=== PATIENT | male | born 1950 | race Hispanic/Latino ===

== ENCOUNTER 2017-09-01 15:33 | Emergency (ER) | payer OTHER, MEDICARE ==
[2017-09-01 16:23] LABS: INR 0.93 (0.85-1.15); PARTIAL THROMBOPLASTIN TIME 26.2 SEC (26.3-35.5); PROTHROMBIN TIME 9.8 SEC (9.6-11.6)
[2017-09-01 16:25] LABS: CREATININE 1.1 mg/dL (0.5-1.5); POTASSIUM 4.2 mmol/L (3.5-5.1)
[2017-09-01 16:37] LABS: BASOPHILS % (AUTO) 0.2 % (0.0-5.0); EOSINOPHILS % (AUTO) 2.1 % (0.0-8.0); LYMPHOCYTES % (AUTO) 13.9 % (21.0-51.0); MEAN CORPUSCULAR HEMOGLOBIN 30.6 pg (27.0-33.0); MEAN CORPUSCULAR HGB CONC 33.9 g/dL (32.0-36.0); MEAN CORPUSCULAR VOLUME 90.2 fL (79-99); NEUTROPHILS % (AUTO) 74.8 % (40.0-77.0); PLATELET COUNT (AUTO) 247 K/uL (130-400); RED BLOOD CELL COUNT(AUTO) 4.99 MIL/uL (4.50-6.20); RED CELL DISTRIBUTION WIDTH 13.9 % (11.0-15.5); WHITE BLOOD COUNT (AUTO) 6.3 K/uL (4.8-10.8)
[2017-09-01 16:39] LABS: BILIRUBIN,TOTAL 0.6 mg/dL (0.2-1.0); CREATINE KINASE MB 0.6 ng/mL (0.5-3.6); TOTAL PROTEIN, SERUM 7.5 g/dL (6.0-8.3)
[2017-09-01] MEDS ORDERED: ACETAMINOPHEN EXTRA STRENGTH 500 MG TABLET ONE (18:48)
[2017-09-01 19:51] LABS: APPEARANCE,URINE Clear (CLEAR); BILIRUBIN,URINE Negative (NEGATIVE); COLOR,URINE Yellow (YELLOW); GLUCOSE, URINE (UA) Negative (NEGATIVE); KETONES,URINE Negative (NEGATIVE); LEUKOCYTE ESTERASE ,URINE Trace (NEGATIVE); NITRATE,URINE Negative (NEGATIVE); OCCULT BLOOD,URINE Negative (NEGATIVE); PH,URINE 6.5 (5.0-8.0); PROTEIN,URINE Negative (NEGATIVE)
[2017-09-01 20:12] LABS: BACTERIA,URINE Rare /HPF (None Seen); MUCUS,URINE Rare LPF (None Seen); RBC,URINE None Seen /HPF (0-1)
== END 2017-09-01 20:30 | disposition home or self-care (01) ==
LOC: EDH 15:33
DX: R10.30 Lower abdominal pain, unspecified (principal); Z98.890 Other specified postprocedural states
CPT/HCPCS: 36415; 71045; 76770; 80053; 81001; 82550; 82553; 83690; 84484; 85025; 85610; 85730; 93005

== ENCOUNTER 2019-09-14 05:52 | Inpatient (IN) | payer OTHER, MEDICARE ==
[2019-09-14] MEDS ORDERED: ONDANSETRON HCL 4 MG/2 ML VIAL ONE (05:59)
[2019-09-14] MEDS ORDERED: METOCLOPRAMIDE 10 MG/2 ML VIAL ONE (06:18)
[2019-09-14 06:30] LABS: BASOPHILS % (AUTO) 0.1 % (0.0-5.0); LYMPHOCYTES % (AUTO) 6.3 % (21.0-51.0); MEAN CORPUSCULAR HEMOGLOBIN 31.1 pg (27.0-33.0); MEAN CORPUSCULAR HGB CONC 33.4 g/dL (32.0-36.0); MEAN CORPUSCULAR VOLUME 93.2 fL (79-99); PLATELET COUNT (AUTO) 218 K/uL (130-400); RED BLOOD CELL COUNT(AUTO) 4.72 MIL/uL (4.50-6.20); RED CELL DISTRIBUTION WIDTH 12.7 % (11.0-15.5); WHITE BLOOD COUNT (AUTO) 8.9 K/uL (4.8-10.8)
[2019-09-14 06:50] LABS: BILIRUBIN,TOTAL 0.6 mg/dL (0.2-1.0); TOTAL PROTEIN, SERUM 7.2 g/dL (6.0-8.3)
[2019-09-14 06:53] LABS: INR 0.93 (0.85-1.15); PARTIAL THROMBOPLASTIN TIME 21.9 SEC (26.3-35.5); PROTHROMBIN TIME 10.1 SEC (9.6-11.6)
[2019-09-14] MEDS ORDERED: IOHEXOL-350 75 ML VIAL IV ONE (07:17)
[2019-09-14 07:19] LABS: APPEARANCE,URINE Clear (CLEAR); BILIRUBIN,URINE Negative (NEGATIVE); COLOR,URINE Yellow (YELLOW); GLUCOSE, URINE (UA) Negative (NEGATIVE); KETONES,URINE Negative (NEGATIVE); LEUKOCYTE ESTERASE ,URINE Negative (NEGATIVE); NITRATE,URINE Negative (NEGATIVE); OCCULT BLOOD,URINE Negative (NEGATIVE); PROTEIN,URINE Negative (NEGATIVE)
[2019-09-14] MEDS ORDERED: LIDOCAINE HCL 2% JELLY 5 ML ONE (08:24)
[2019-09-14] MEDS ORDERED: MORPHINE SULFATE 2 MG/ML 1ML SYG ONE (08:24)
[2019-09-14] MEDS ORDERED: ONDANSETRON HCL 4 MG/2 ML VIAL IVP PRN (08:30)
[2019-09-14] MEDS ORDERED: LABETALOL 20 MG/4 ML DISP.SYRIN IV PRN (08:30)
[2019-09-14] MEDS: LACTATED RINGERS 1000ML 1,000 ML IV SCH ×3 (08:30→20:01)
[2019-09-14] MEDS ORDERED: HYDRALAZINE HCL 20 MG/ML VIAL IV PRN (08:30)
[2019-09-14] MEDS ORDERED: HYDROMORPHONE HCL 0.5 MG/0.5 ML ML IVP PRN (08:30)
[2019-09-14] MEDS: FAMOTIDINE/PF 20 MG/2 ML VIAL IV SCH ×2 (09:00→19:54)
[2019-09-14] MEDS ORDERED: PANTOPRAZOLE 40 MG/VIAL IVP SCH (09:00)
[2019-09-14] MEDS: METOCLOPRAMIDE 10 MG/2 ML VIAL IVP SCH ×2 (09:00→19:54)
[2019-09-14 12:11] VITALS: BP 151/87
--- NOTE | 2019-09-14 13:00 | NUR ---
informed raf dale of consult ..
[2019-09-14] MEDS ORDERED: IBUP-2070 PO (16:44)
[2019-09-14] MEDS ORDERED: METH4TAB15 PO (16:44)
[2019-09-14 17:40] VITALS: BP 142/92
[2019-09-14] MEDS: POLYETHYLENE GLYCOL 3350 17 GM POWD.PACK NG SCH (17:40)
[2019-09-14] MEDS: DOCUSATE SODIUM 100 MG CAP PO SCH (17:40)
--- NOTE | 2019-09-14 18:36 | NUR ---
FLEETS ENEMA X 1
[2019-09-14 19:40] VITALS: BP 143/86
[2019-09-14 23:39] VITALS: BP 136/88
[2019-09-15 03:39] VITALS: BP 135/77
[2019-09-15 04:39] LABS: BASOPHILS % (AUTO) 0.2 % (0.0-5.0); EOSINOPHILS % (AUTO) 0.7 % (0.0-8.0); HEMATOCRIT 42.3 % (42-54); LYMPHOCYTES % (AUTO) 17.1 % (21.0-51.0); MEAN CORPUSCULAR HEMOGLOBIN 32.1 pg (27.0-33.0); MEAN CORPUSCULAR HGB CONC 33.6 g/dL (32.0-36.0); MEAN CORPUSCULAR VOLUME 95.7 fL (79-99); MONOCYTES % (AUTO) 8.6 % (3.0-13.0); NEUTROPHILS % (AUTO) 73.2 % (40.0-77.0); PLATELET COUNT (AUTO) 200 K/uL (130-400); RED BLOOD CELL COUNT(AUTO) 4.42 MIL/uL (4.50-6.20); RED CELL DISTRIBUTION WIDTH 12.9 % (11.0-15.5); WHITE BLOOD COUNT (AUTO) 5.5 K/uL (4.8-10.8)
[2019-09-15 04:52] LABS: PHOSPHORUS 2.5 mg/dL (2.5-4.9); POTASSIUM 3.8 mmol/L (3.5-5.1)
[2019-09-15 08:37] VITALS: BP 149/95
[2019-09-15] MEDS ORDERED: DOCUSATE SODIUM 100 MG CAP PO SCH (09:00)
[2019-09-15] MEDS ORDERED: POLYETHYLENE GLYCOL 3350 17 GM POWD.PACK NG SCH (09:00)
[2019-09-15] MEDS: METOCLOPRAMIDE 10 MG/2 ML VIAL IVP SCH ×2 (09:53→20:31)
[2019-09-15] MEDS: DOCUSATE SODIUM 100 MG CAP PO SCH (09:54)
[2019-09-15] MEDS: POLYETHYLENE GLYCOL 3350 17 GM POWD.PACK NG SCH (09:54)
[2019-09-15] MEDS: FAMOTIDINE/PF 20 MG/2 ML VIAL IV SCH ×2 (09:54→20:31)
--- NOTE | 2019-09-15 11:28 | NUR ---
chart reviewed,,acf uploaded, plan of care discussed w norbert, order recd Addendum: 09/15/19 at 1129 by VALENTINA BRUNER RN CM Amended: Links added.
[2019-09-15 12:28] VITALS: BP 156/96
--- NOTE | 2019-09-15 13:46 | NUR ---
THERESA PLAN VISITED WITH PATIENT. PATIENT SLEEPING. SHELDON WILL CONTINUE TO FOLLOW. Addendum: 09/15/19 at 1347 by TAHIR SUN RN CM Amended: Links added.
[2019-09-15 17:02] VITALS: BP 146/92
[2019-09-15 20:26] VITALS: BP 155/95
--- NOTE | 2019-09-15 21:38 | NUR ---
patient wants his IV on the left antecubital to be removed because he says "it hurts and it is not being used." After speaking with him about the reasons to have that IV catheter, he still wants it removed. IV catheter removed. tip of the catheter intact.
[2019-09-15 23:48] VITALS: BP 132/81
[2019-09-16] MEDS: LACTATED RINGERS 1000ML 1,000 ML IV SCH (00:30)
[2019-09-16 03:05] VITALS: BP 127/82
[2019-09-16 04:24] LABS: MEAN CORPUSCULAR HEMOGLOBIN 31.2 pg (27.0-33.0); MEAN CORPUSCULAR HGB CONC 33.5 g/dL (32.0-36.0); MEAN CORPUSCULAR VOLUME 93.3 fL (79-99); RED BLOOD CELL COUNT(AUTO) 4.61 MIL/uL (4.50-6.20); RED CELL DISTRIBUTION WIDTH 12.6 % (11.0-15.5); WHITE BLOOD COUNT (AUTO) 5.2 K/uL (4.8-10.8)
[2019-09-16 04:37] LABS: CREATININE 0.9 mg/dL (0.5-1.5); POTASSIUM 3.8 mmol/L (3.5-5.1)
[2019-09-16 07:56] VITALS: BP 135/86
[2019-09-16] MEDS: FAMOTIDINE/PF 20 MG/2 ML VIAL IV SCH (08:38)
[2019-09-16] MEDS: DOCUSATE SODIUM 100 MG CAP PO SCH (08:39)
[2019-09-16] MEDS: METOCLOPRAMIDE 10 MG/2 ML VIAL IVP SCH (08:39)
[2019-09-16] MEDS ORDERED: DOCU-275 PO (11:32)
--- NOTE | 2019-09-16 11:32 | NUR ---
DC PLAN VISITED WITH PATIENT. PATIENT LIVES WITH SPOUSE. INDEPENDENT ABLE TO PERFORM ADL'S. PATIENT HAS NO DME'S. PROVIDER 4 HOURS A DAY. FEELS SAFE TO RETURN HOME. Addendum: 09/16/19 at 1133 by TAHIR SUN RN CM Amended: Links added.
[2019-09-16 11:40] VITALS: BP 130/58
== END 2019-09-16 15:45 | disposition home or self-care (01) | DRG 390 ==
LOC: EDH 05:52 → OBSVTOIN 08:17 → EDHIP 08:17 → 3AH 09:45
PROVIDERS: ADMIT Internal Medicine; ATTEND Internal Medicine
PROC: 0D9670Z Drainage of Stomach with Drainage Device, Via Natural or Artificial Opening (ICD-10-PCS; principal; 2019-09-14)
DX: K56.600 Partial intestinal obstruction, unspecified as to cause (principal); K57.90 Diverticulosis of intestine, part unspecified, without perforation or abscess without bleeding; M19.90 Unspecified osteoarthritis, unspecified site; Z85.46 Personal history of malignant neoplasm of prostate
CPT/HCPCS: 36415; 71045; 74177; 80048; 80053; 81003; 83605; 83690; 83735; 84100; 84484; 85025; 85027; 85610; 85730; 87040; 93005; C9113; G0378; J1170; J2405; J2765; J3490; J7120; Q9967

== ENCOUNTER 2020-11-11 12:47 | Emergency (ER) | payer OTHER, MEDICARE ==
[~2020-11-11] VITALS: Ht 175.3 cm; Wt 74.8 kg
[~2020-11-11 12:47] MED LIST: DOCU-275 PO; IBUP-2070 PO
[2020-11-11] MEDS ORDERED: CEPHALEXIN 500 MG CAPSULE PO SCH (13:00)
[2020-11-11] MEDS ORDERED: KETOROLAC 60 MG VIAL (30MG/ML) IM SCH (13:00)
[2020-11-11] MEDS ORDERED: ACETAMINOPHEN 500 MG TABLET PO SCH (13:15)
[2020-11-11] MEDS ORDERED: NAPR-1180 PO (13:55)
[2020-11-11] MEDS ORDERED: CEPH500B PO (13:55)
[2020-11-11] MEDS ORDERED: TRAM1TAB PO (13:55)
== END 2020-11-11 14:47 | disposition home or self-care (01) ==
LOC: EDH 13:06
DX: M70.52 Other bursitis of knee, left knee (principal); L03.116 Cellulitis of left lower limb; Y93.H2 Activity, gardening and landscaping; Z79.899 Other long term (current) drug therapy
CPT/HCPCS: 73562; 96372; 99283; J1885

== ENCOUNTER 2021-04-27 15:40 | Emergency (ER) | payer OTHER, MEDICARE ==
[~2021-04-27] VITALS: Ht 175.3 cm; Wt 74.8 kg
[~2021-04-27 15:40] MED LIST changes: +CEPH500B PO; +DOCU-270 PO; -DOCU-275 PO; -IBUP-2070 PO; +NAPR-1180 PO; +OMEP40CA21 PO; +TAMS-1 PO; +TRAM1TAB PO
[2021-04-27 16:02] LABS: APPEARANCE,URINE Cloudy (CLEAR); BILIRUBIN,URINE Negative (NEGATIVE); COLOR,URINE Dark Yellow (YELLOW); GLUCOSE, URINE (UA) Negative (NEGATIVE); KETONES,URINE 40 mg/dL (NEGATIVE); LEUKOCYTE ESTERASE ,URINE Small (NEGATIVE); NITRATE,URINE Negative (NEGATIVE); OCCULT BLOOD,URINE Negative (NEGATIVE); PROTEIN,URINE POS 2+ mg/dL (NEGATIVE)
[2021-04-27 16:10] LABS: HEMATOCRIT 43.9 % (42-54); LYMPHOCYTES % (AUTO) 5.7 % (21.0-51.0); MEAN CORPUSCULAR HEMOGLOBIN 31.3 pg (27.0-33.0); MEAN CORPUSCULAR HGB CONC 34.6 g/dL (32.0-36.0); MEAN CORPUSCULAR VOLUME 90.3 fL (79-99); MONOCYTES % (AUTO) 2.4 % (3.0-13.0); NEUTROPHILS % (AUTO) 91.7 % (40.0-77.0); PLATELET COUNT (AUTO) 245 K/uL (130-400); RED BLOOD CELL COUNT(AUTO) 4.86 MIL/uL (4.50-6.20); RED CELL DISTRIBUTION WIDTH 12.7 % (11.0-15.5)
[2021-04-27 16:11] LABS: BACTERIA,URINE Many /HPF (None Seen); MUCUS,URINE Few LPF (None Seen); SQUAMOUS EPITHELIAL CELL,UR 0-2 /HPF (0-2); WBC,URINE 26-50 /HPF (0-1)
[2021-04-27 16:20] LABS: POTASSIUM 3.9 mmol/L (3.5-5.1)
[2021-04-27 16:24] LABS: ALBUMIN 4.2 g/dL (3.5-5.0); BILIRUBIN,TOTAL 0.9 mg/dL (0.2-1.0); TOTAL PROTEIN, SERUM 8.1 g/dL (6.0-8.3)
[2021-04-27] MEDS ORDERED: PANTOPRAZOLE 40 MG/VIAL IVP ONE (16:30)
[2021-04-27] MEDS ORDERED: 0.9%NACL 1000ML 1,000 ML IV ONE (16:30)
[2021-04-27] MEDS ORDERED: MORPHINE 4 MG SYG IV ONE (16:30)
[2021-04-27] MEDS ORDERED: DICYCLOMINE HCL 10 MG/5 ML ML PO ONE (17:00)
[2021-04-27] MEDS ORDERED: LIDOCAINE HCL 2% VISCOUS 15 ML UDCUP PO ONE (17:00)
[2021-04-27] MEDS ORDERED: MAG/ALUM/SIMETH 30 ML UDCUP PO ONE (17:00)
[2021-04-27 18:32] VITALS: BP 146/85
[2021-04-27] MEDS ORDERED: SUCR1TAB PO (18:35)
== END 2021-04-27 18:52 | disposition home or self-care (01) ==
LOC: EDH 15:40
DX: K29.00 Acute gastritis without bleeding (principal); Z79.1 Long term (current) use of non-steroidal anti-inflammatories (NSAID); Z79.899 Other long term (current) drug therapy
CPT/HCPCS: 36415; 74176; 80053; 81001; 83690; 84484; 85025; 87077; 87088; 87186; 93005; 96361; 96374; 96375; 99285; C9113; J2270; J7030

== ENCOUNTER 2022-02-16 00:33 | Emergency (ER) | payer OTHER, MEDICARE ==
[~2022-02-16] VITALS: Ht 175.3 cm; Wt 73.9 kg
[~2022-02-16 00:33] MED LIST changes: +SUCR1TAB PO; -TRAM1TAB PO; +TRAM1TAB2 PO
[2022-02-16 01:03] LABS: BASOPHILS % (AUTO) 0.2 % (0.0-5.0); HEMATOCRIT 46.3 % (42-54); LYMPHOCYTES % (AUTO) 5.6 % (21.0-51.0); MEAN CORPUSCULAR HEMOGLOBIN 31.6 pg (27.0-33.0); MEAN CORPUSCULAR HGB CONC 33.9 g/dL (32.0-36.0); MEAN CORPUSCULAR VOLUME 93.2 fL (79-99); MONOCYTES % (AUTO) 5.2 % (3.0-13.0); NEUTROPHILS % (AUTO) 88.6 % (40.0-77.0); PLATELET COUNT (AUTO) 228 K/uL (130-400); RED BLOOD CELL COUNT(AUTO) 4.97 MIL/uL (4.50-6.20); RED CELL DISTRIBUTION WIDTH 12.6 % (11.0-15.5); WHITE BLOOD COUNT (AUTO) 10.9 K/uL (4.8-10.8)
[2022-02-16 01:10] LABS: APPEARANCE,URINE CLOUDY (CLEAR); BILIRUBIN,URINE NEGATIVE (NEGATIVE); COLOR,URINE YELLOW (YELLOW); GLUCOSE, URINE (UA) NEGATIVE (NEGATIVE); KETONES,URINE 20 mg/dL (NEGATIVE); LEUKOCYTE ESTERASE ,URINE 500 Leu/uL (NEGATIVE); NITRATE,URINE NEGATIVE (NEGATIVE); OCCULT BLOOD,URINE NEGATIVE (NEGATIVE); PH,URINE 6.5 (5.0-8.0); PROTEIN,URINE 30 mg/dL (NEGATIVE)
[2022-02-16 01:15] LABS: POTASSIUM 4.3 mmol/L (3.5-5.1)
[2022-02-16 01:20] LABS: TOTAL PROTEIN, SERUM 7.7 g/dL (6.0-8.3)
[2022-02-16 01:24] LABS: BACTERIA,URINE RARE /HPF (None Seen); MUCUS,URINE MANY LPF (None Seen); SQUAMOUS EPITHELIAL CELL,UR RARE /HPF (0-2); WBC,URINE TNTC /HPF (0-1)
[2022-02-16] MEDS ORDERED: CEFTRIAXONE 1G VIAL IM ONE (02:00)
[2022-02-16] MEDS ORDERED: CEPH500B PO (02:10)
[2022-02-16] MEDS ORDERED: PHEN-846 PO (02:10)
[2022-02-16 02:30] VITALS: BP 173/95
[2022-02-16] MEDS ORDERED: PHENAZOPYRIDINE HCL 200 MG TABLET PO ONE (02:30)
== END 2022-02-16 02:57 | disposition home or self-care (01) ==
LOC: EDH 00:33
DX: N39.0 Urinary tract infection, site not specified (principal); Z98.890 Other specified postprocedural states; Z79.899 Other long term (current) drug therapy
CPT/HCPCS: 99283; 82150; 80053; 83690; 85025; 87077; 87088; 87186; 81001; 36415; 96372; J0696

== ENCOUNTER → 2022-03-03 | Outpatient (CLI) | payer OTHER, MEDICARE ==
[~2022-03-03] MED LIST changes: +PHEN-846 PO
== END | disposition home or self-care (01) ==
LOC: RAH 11:39
PROVIDERS: ATTEND Family Medicine
DX: M25.512 Pain in left shoulder (principal); Z91.81 History of falling
CPT/HCPCS: 73030

== ENCOUNTER → 2022-08-22 | Outpatient (CLI) | payer OTHER, MEDICARE ==
[~2022-08-22] MED LIST changes: +AMOX1TAB15 PO; +CEPH500C2 PO; +IBUP-2070 PO; +MUPI22OI2 TP; +REGADENOSON 0.4 MG/5 ML PF SYG IVP ONE
== END | disposition home or self-care (01) ==
LOC: SHCH 07:35
PROVIDERS: ATTEND Internal Medicine Cardiovascular Disease
DX: R94.31 Abnormal electrocardiogram [ECG] [EKG] (principal); R07.9 Chest pain, unspecified
CPT/HCPCS: 78452; 93017; J2785; A9500 ×2; 96374

== ENCOUNTER → 2022-08-27 | Outpatient (CLI) | payer OTHER, MEDICARE ==
[~2022-08-27] MED LIST changes: -AMOX1TAB15 PO; -CEPH500C2 PO; -IBUP-2070 PO; -MUPI22OI2 TP; -REGADENOSON 0.4 MG/5 ML PF SYG IVP ONE
== END | disposition home or self-care (01) ==
LOC: SHCH 10:00
PROVIDERS: ATTEND Internal Medicine Cardiovascular Disease
DX: I51.7 Cardiomegaly (principal); R94.31 Abnormal electrocardiogram [ECG] [EKG]; R07.9 Chest pain, unspecified; I51.89 Other ill-defined heart diseases
CPT/HCPCS: 93306

== ENCOUNTER 2022-09-09 17:29 | Emergency (ER) | payer OTHER, MEDICARE ==
[~2022-09-09] VITALS: Ht 175.3 cm; Wt 67.6 kg
[2022-09-09] MEDS ORDERED: LIDOCAINE HCL 1% 20 ML VIAL INJ SCH (18:30)
[2022-09-09] MEDS ORDERED: TETANUS/DIPHTHERIA TOXOID [ADULT] 0.5 ML VIAL IM ONE (19:00)
[2022-09-09] MEDS ORDERED: MUPI22OI2 TP (20:29)
[2022-09-09] MEDS ORDERED: IBUP-2070 PO (20:29)
[2022-09-09] MEDS ORDERED: CEPH500C2 PO (20:29)
[2022-09-09 20:55] VITALS: BP 128/74
[2022-09-09] MEDS ORDERED: IBUPROFEN 600 MG TABLET PO ONE (21:30)
== END 2022-09-09 21:10 | disposition home or self-care (01) ==
LOC: EDH 17:29
DX: S61.012A Laceration without foreign body of left thumb without damage to nail, initial encounter (principal); S61.412A Laceration without foreign body of left hand, initial encounter; K21.9 Gastro-esophageal reflux disease without esophagitis; Z87.19 Personal history of other diseases of the digestive system; Z98.890 Other specified postprocedural states; Z90.79 Acquired absence of other genital organ(s); W25.XXXA Contact with sharp glass, initial encounter; W01.0XXA Fall on same level from slipping, tripping and stumbling without subsequent striking against object, initial encounter; Y92.89 Other specified places as the place of occurrence of the external cause; Y99.8 Other external cause status
CPT/HCPCS: 12004; 73130; 90471; 90714; 96372

== ENCOUNTER 2022-10-06 09:56 | Emergency (ER) | payer OTHER, MEDICARE ==
[~2022-10-06] VITALS: Ht 175.3 cm; Wt 67.6 kg
[~2022-10-06 09:56] MED LIST changes: +CEPH500C2 PO; +IBUP-2070 PO; +MUPI22OI2 TP
[2022-10-06 09:57] VITALS: BP 151/96
[2022-10-06 10:31] LABS: APPEARANCE,URINE CLOUDY (CLEAR); BILIRUBIN,URINE NEGATIVE (NEGATIVE); COLOR,URINE YELLOW (YELLOW); GLUCOSE, URINE (UA) NEGATIVE (NEGATIVE); KETONES,URINE 10 mg/dL (NEGATIVE); LEUKOCYTE ESTERASE ,URINE 250 Leu/uL (NEGATIVE); NITRATE,URINE NEGATIVE (NEGATIVE); OCCULT BLOOD,URINE NEGATIVE (NEGATIVE); PROTEIN,URINE 30 mg/dL (NEGATIVE)
[2022-10-06 10:36] LABS: BACTERIA,URINE MANY /HPF (None Seen); MUCUS,URINE MANY LPF (None Seen); SQUAMOUS EPITHELIAL CELL,UR RARE /HPF (0-2); WBC,URINE 26-50 /HPF (0-1)
[2022-10-06 11:11] LABS: BASOPHILS % (AUTO) 0.1 % (0.0-5.0); HEMATOCRIT 46.2 % (42-54); LYMPHOCYTES % (AUTO) 13.5 % (21.0-51.0); MEAN CORPUSCULAR HEMOGLOBIN 30.5 pg (27.0-33.0); MEAN CORPUSCULAR HGB CONC 32.9 g/dL (32.0-36.0); MEAN CORPUSCULAR VOLUME 92.8 fL (79-99); MONOCYTES % (AUTO) 6.7 % (3.0-13.0); NEUTROPHILS % (AUTO) 79.3 % (40.0-77.0); PLATELET COUNT (AUTO) 292 K/uL (130-400); RED BLOOD CELL COUNT(AUTO) 4.98 MIL/uL (4.50-6.20); RED CELL DISTRIBUTION WIDTH 13.4 % (11.0-15.5); WHITE BLOOD COUNT (AUTO) 7.3 K/uL (4.8-10.8)
[2022-10-06 11:14] LABS: CARBON DIOXIDE 30 mmol/L (21-32); CHLORIDE 103 mmol/L (101-111); CREATININE 0.9 mg/dL (0.5-1.5); GLOMERULAR FILTR. RATE CALC 90 mL/min (>90); GLUCOSE,RANDOM 133 mg/dL (70-105); POTASSIUM 4.5 mmol/L (3.5-5.1); SODIUM SERUM 140 mmol/L (136-145); UREA NITROGEN, BLOOD 18 mg/dL (7-18)
[2022-10-06 11:19] LABS: ALANINE AMINOTRANSFERASE 20 U/L (12-78); ALBUMIN 4.5 g/dL (3.5-5.0); ASPARTATE AMINOTRANSFERASE 17 U/L (10-37); TOTAL PROTEIN, SERUM 7.5 g/dL (6.0-8.3)
[2022-10-06 11:20] LABS: LIPASE < 50 U/L (114-286)
[2022-10-06] MEDS ORDERED: IOHEXOL 350 MG/ML 100ML INFUS..BTL IV ONE (12:10)
[2022-10-06] MEDS: CEFTRIAXONE 1G VIAL IVPB ONE (12:48)
[2022-10-06] MEDS: 0.9%NACL 1000ML 1,000 ML IV ONE (12:48)
[2022-10-06] MEDS ORDERED: AMOX1TAB15 PO (14:21)
== END 2022-10-06 14:36 | disposition home or self-care (01) ==
LOC: EDH 09:56
DX: N39.0 Urinary tract infection, site not specified (principal); J02.0 Streptococcal pharyngitis; K21.9 Gastro-esophageal reflux disease without esophagitis; Z90.79 Acquired absence of other genital organ(s); Z20.822 Contact with and (suspected) exposure to COVID-19
CPT/HCPCS: 99285; 74177; 96365; 71045; 87635; 84484; 80053; 83690; 85025; 87077; 87088; 87186; 87880; 87804 ×2; 83605; 81001; 36415; 93005; C9803; J7030; J0696; Q9967

== ENCOUNTER 2022-10-29 00:24 | Observation (INO) | payer OTHER, MEDICARE ==
[~2022-10-29] VITALS: Ht 175.3 cm; Wt 64.8 kg
[~2022-10-29 00:24] MED LIST changes: +AMOX1TAB15 PO
[2022-10-29 01:24] LABS: BASOPHILS % (AUTO) 0.1 % (0.0-5.0); EOSINOPHILS % (AUTO) 0.2 % (0.0-8.0); HEMATOCRIT 45.2 % (42-54); MEAN CORPUSCULAR HEMOGLOBIN 31.1 pg (27.0-33.0); MEAN CORPUSCULAR HGB CONC 33.6 g/dL (32.0-36.0); MEAN CORPUSCULAR VOLUME 92.6 fL (79-99); MONOCYTES % (AUTO) 6.4 % (3.0-13.0); NEUTROPHILS % (AUTO) 89.2 % (40.0-77.0); PLATELET COUNT (AUTO) 192 K/uL (130-400); RED BLOOD CELL COUNT(AUTO) 4.88 MIL/uL (4.50-6.20); RED CELL DISTRIBUTION WIDTH 13.1 % (11.0-15.5); WHITE BLOOD COUNT (AUTO) 8.8 K/uL (4.8-10.8)
[2022-10-29] MEDS ORDERED: MORPHINE 4 MG SYG IVP ONE (01:30)
[2022-10-29] MEDS ORDERED: METOCLOPRAMIDE 10 MG/2 ML VIAL IVP ONE (01:30)
[2022-10-29] MEDS ORDERED: FAMOTIDINE 20MG VIAL IV ONE (01:30)
[2022-10-29 01:34] LABS: CARBON DIOXIDE 26 mmol/L (21-32); CHLORIDE 103 mmol/L (101-111); CREATININE 0.8 mg/dL (0.5-1.5); GLOMERULAR FILTR. RATE CALC 93 mL/min (>90); GLUCOSE,RANDOM 172 mg/dL (70-105); SODIUM SERUM 139 mmol/L (136-145); UREA NITROGEN, BLOOD 17 mg/dL (7-18)
[2022-10-29 01:38] LABS: ALANINE AMINOTRANSFERASE 18 U/L (12-78); ALBUMIN 4.1 g/dL (3.5-5.0); ASPARTATE AMINOTRANSFERASE 18 U/L (10-37); TOTAL PROTEIN, SERUM 7.7 g/dL (6.0-8.3)
[2022-10-29] MEDS ORDERED: IOHEXOL 350 MG/ML 100ML INFUS..BTL IV ONE (01:44)
[2022-10-29 01:52] LABS: APPEARANCE,URINE CLEAR (CLEAR); BILIRUBIN,URINE NEGATIVE (NEGATIVE); COLOR,URINE YELLOW (YELLOW); GLUCOSE, URINE (UA) NEGATIVE (NEGATIVE); KETONES,URINE 40 mg/dL (NEGATIVE); LEUKOCYTE ESTERASE ,URINE NEGATIVE Leu/uL (NEGATIVE); NITRATE,URINE NEGATIVE (NEGATIVE); OCCULT BLOOD,URINE NEGATIVE (NEGATIVE); PH,URINE 6.5 (5.0-8.0); PROTEIN,URINE 50 mg/dL (NEGATIVE)
[2022-10-29 01:57] LABS: LIPASE < 50 U/L (114-286)
[2022-10-29 02:20] LABS: MUCUS,URINE RARE LPF (None Seen)
[2022-10-29] MEDS: INSULIN HUMULIN R 100 UNIT/ML 3ML SQ SCH ×3 (06:00→18:00)
[2022-10-29] MEDS ORDERED: TRAMADOL HCL 50 MG TABLET PO PRN (06:00)
[2022-10-29] MEDS ORDERED: ONDANSETRON 4MG INJ IVP PRN (06:00)
[2022-10-29] MEDS: LACTATED RINGERS 1000ML 1,000 ML IV SCH ×3 (07:09→21:33)
[2022-10-29] MEDS: DOCUSATE SODIUM 100 MG CAP PO SCH (08:24)
[2022-10-29] MEDS: PHENAZOPYRIDINE HCL 200 MG TABLET PO SCH ×3 (08:24→21:14)
[2022-10-29] MEDS: TAMSULOSIN HCL 0.4 MG CAP.ER.24H PO SCH (08:25)
[2022-10-29] MEDS ORDERED: SUCRALFATE 1 GM TABLET PO PRN (08:30)
[2022-10-29] MEDS ORDERED: PANTOPRAZOLE 40 MG/VIAL IVP SCH (09:00)
[2022-10-29] MEDS ORDERED: ENOXAPARIN SODIUM 30 MG/0.3 ML SQ SCH (09:00)
[2022-10-29] MEDS: METOCLOPRAMIDE 10 MG/2 ML VIAL IVP SCH (17:01)
[2022-10-29] MEDS: PANTOPRAZOLE 40 MG/VIAL IVP SCH (21:14)
[2022-10-29 23:23] VITALS: BP 134/81
[2022-10-30 03:57] VITALS: BP 123/76
[2022-10-30] MEDS: LACTATED RINGERS 1000ML 1,000 ML IV SCH ×3 (05:38→21:32)
[2022-10-30] MEDS: INSULIN HUMULIN R 100 UNIT/ML 3ML SQ SCH ×4 (05:41→17:04)
[2022-10-30] MEDS: METOCLOPRAMIDE 10 MG/2 ML VIAL IVP SCH ×2 (06:37→11:40)
[2022-10-30 06:48] LABS: HEMATOCRIT 42.8 % (42-54); MEAN CORPUSCULAR HEMOGLOBIN 30.9 pg (27.0-33.0); MEAN CORPUSCULAR HGB CONC 32.7 g/dL (32.0-36.0); MEAN CORPUSCULAR VOLUME 94.5 fL (79-99); RED BLOOD CELL COUNT(AUTO) 4.53 MIL/uL (4.50-6.20); WHITE BLOOD COUNT (AUTO) 4.1 K/uL (4.8-10.8)
[2022-10-30 06:56] LABS: CREATININE 0.9 mg/dL (0.5-1.5); MAGNESIUM 1.7 mg/dL (1.80-2.40); PHOSPHORUS 2.6 mg/dL (2.5-4.9); POTASSIUM 3.5 mmol/L (3.5-5.1)
[2022-10-30 08:00] VITALS: BP 142/89
[2022-10-30] MEDS: DOCUSATE SODIUM 100 MG CAP PO SCH (08:41)
[2022-10-30] MEDS: TAMSULOSIN HCL 0.4 MG CAP.ER.24H PO SCH (08:41)
[2022-10-30] MEDS: ENOXAPARIN SODIUM 30 MG/0.3 ML SQ SCH (08:41)
[2022-10-30] MEDS: PHENAZOPYRIDINE HCL 200 MG TABLET PO SCH ×3 (08:41→21:26)
[2022-10-30] MEDS: PANTOPRAZOLE 40 MG/VIAL IVP SCH ×2 (08:53→21:26)
[2022-10-30] MEDS ORDERED: PANTOPRAZOLE 40 MG TAB DR PO SCH (09:00)
[2022-10-30 11:51] VITALS: BP 133/82
[2022-10-30 11:59] LABS: HEMATOCRIT 41.1 % (42-54)
[2022-10-30 16:00] VITALS: BP 134/81
[2022-10-30] MEDS: MAGNESIUM 2GM PREMIX 50ML 50 ML IV PRN (17:24)
[2022-10-30 18:08] LABS: HEMATOCRIT 39.3 % (42-54)
[2022-10-30 19:46] VITALS: BP 132/75
[2022-10-30 23:47] VITALS: BP 128/84
[2022-10-31 04:02] VITALS: BP 126/78
[2022-10-31 05:36] LABS: BASOPHILS % (AUTO) 0.2 % (0.0-5.0); EOSINOPHILS % (AUTO) 6.6 % (0.0-8.0); HEMATOCRIT 37.3 % (42-54); LYMPHOCYTES % (AUTO) 17.7 % (21.0-51.0); MONOCYTES % (AUTO) 9.3 % (3.0-13.0); PLATELET COUNT (AUTO) 157 K/uL (130-400); RED BLOOD CELL COUNT(AUTO) 3.97 MIL/uL (4.50-6.20); RED CELL DISTRIBUTION WIDTH 12.8 % (11.0-15.5); WHITE BLOOD COUNT (AUTO) 4.1 K/uL (4.8-10.8)
[2022-10-31] MEDS: INSULIN HUMULIN R 100 UNIT/ML 3ML SQ SCH ×3 (05:47→11:42)
[2022-10-31] MEDS: LACTATED RINGERS 1000ML 1,000 ML IV SCH (05:48)
[2022-10-31 05:51] LABS: INR 1.03 (0.85-1.15); PROTHROMBIN TIME 11.2 SEC (9.6-11.6)
[2022-10-31 06:15] LABS: ALBUMIN 2.8 g/dL (3.5-5.0); CREATININE 0.8 mg/dL (0.5-1.5); MAGNESIUM 1.7 mg/dL (1.80-2.40); POTASSIUM 3.8 mmol/L (3.5-5.1); THYROID STIMULATING HORMONE 0.35 uIU/mL (0.36-3.74); TOTAL PROTEIN, SERUM 5.5 g/dL (6.0-8.3)
[2022-10-31] MEDS: MAGNESIUM 2GM PREMIX 50ML 50 ML IV PRN (06:47)
[2022-10-31 07:30] VITALS: BP 117/66
[2022-10-31] MEDS: TAMSULOSIN HCL 0.4 MG CAP.ER.24H PO SCH (08:55)
[2022-10-31] MEDS: DOCUSATE SODIUM 100 MG CAP PO SCH (08:55)
[2022-10-31] MEDS: PHENAZOPYRIDINE HCL 200 MG TABLET PO SCH (08:56)
[2022-10-31] MEDS: ENOXAPARIN SODIUM 30 MG/0.3 ML SQ SCH (08:56)
[2022-10-31] MEDS: PANTOPRAZOLE 40 MG/VIAL IVP SCH (09:00)
[2022-10-31] MEDS ORDERED: DIATR MEGLU/DIATRIZOATE SODIUM 30 ML BOTTLE ONE (09:48)
[2022-10-31 11:30] VITALS: BP 148/85
[2022-10-31 15:30] VITALS: BP 146/92
[2022-10-31] MEDS ORDERED: PANT40TA PO (15:55)
== END 2022-10-31 18:17 | disposition home or self-care (01) ==
LOC: EDH 00:24 → EDHIP 05:31 → 3DH 22:18
PROVIDERS: ADMIT Internal Medicine Critical Care Medicine; ATTEND Internal Medicine Critical Care Medicine
DX: K92.0 Hematemesis (principal); Z20.822 Contact with and (suspected) exposure to COVID-19; K56.600 Partial intestinal obstruction, unspecified as to cause; K59.09 Other constipation; I10 Essential (primary) hypertension; K21.9 Gastro-esophageal reflux disease without esophagitis; Z85.46 Personal history of malignant neoplasm of prostate; Z87.891 Personal history of nicotine dependence; Z79.899 Other long term (current) drug therapy
CPT/HCPCS: 96374; 96376 ×3; 96372 ×2; 96361 ×3; 96375 ×2; 99285; 84484; 80053 ×2; 83690; 85025 ×2; 85014 ×3; 85018 ×3; 87804 ×2; 82948 ×10; 81001; 36415 ×3; 87635 ×2; 74177; 93005; 83735 ×2; 84100; 80048; 85027; 84443; 85610; 74240; 84145; G0378 ×59; C9803; J7120; J3490; J1650 ×2; J2270; C9113 ×3; J2765 ×5; Q9967; J3475 ×2; Q9963

== ENCOUNTER 2023-06-05 16:33 | Emergency (ER) | payer MEDICARE ==
[~2023-06-05] VITALS: Ht 175.3 cm; Wt 70.3 kg
[~2023-06-05 16:33] MED LIST changes: -IBUP-2070 PO; -NAPR-1180 PO; -OMEP40CA21 PO; +PANT40TA PO
[2023-06-05 17:24] LABS: BASOPHILS # (AUTO) 0.02 K/uL (0.00-0.20); BASOPHILS % (AUTO) 0.3 % (0.0-5.0); EOSINOPHILS # (AUTO) 0.07 K/uL (0.00-0.70); EOSINOPHILS % (AUTO) 1.2 % (0.0-8.0); HEMATOCRIT 40.9 % (42-54); IMMATURE GRANULOCYTE ABSOLUTE 0.02 K/uL (0-1); LYMPHOCYTES # (AUTO) 0.9 K/uL (1.0-4.8); MEAN CORPUSCULAR HEMOGLOBIN 30.9 pg (27.0-33.0); MEAN CORPUSCULAR HGB CONC 33.3 g/dL (32.0-36.0); MONOCYTES # (AUTO) 0.9 K/uL (0.1-1.0); NEUTROPHILS # (AUTO) 3.9 K/uL (1.8-7.7); NEUTROPHILS % (AUTO) 67.2 % (40.0-77.0); PLATELET COUNT (AUTO) 208 K/uL (130-400); RED CELL DISTRIBUTION WIDTH 12.5 % (11.0-15.5); WHITE BLOOD COUNT (AUTO) 5.9 K/uL (4.8-10.8)
[2023-06-05 17:34] LABS: INR < 0.93 (0.85-1.15); PROTHROMBIN TIME 10.7 SEC (9.6-11.6)
[2023-06-05 17:43] LABS: ALBUMIN 3.6 g/dL (3.5-5.0); BILIRUBIN,TOTAL 0.7 mg/dL (0.2-1.0); TOTAL PROTEIN, SERUM 7.4 g/dL (6.0-8.3)
[2023-06-05 17:43] LABS: RAPID GROUP A STREP negative (NEGATIVE)
[2023-06-05 17:46] LABS: SARS-CoV-2, RNA, NAAT NEGATIVE SARS CoV-2 (NEGATIVE)
[2023-06-05 17:51] LABS: INFLUENZA TYPE A Negative For Type A (NEGATIVE); INFLUENZA TYPE B Negative For Type B (NEGATIVE)
[2023-06-05 18:15] LABS: B-TYPE NATRIURETIC PEPTIDE 14 pg/mL (0-100)
[2023-06-05 20:01] VITALS: BP 125/80; PULSE 77; RESP 18; O2SAT 98
== END 2023-06-05 20:06 | disposition home or self-care (01) ==
LOC: EDH 16:33
DX: M94.0 Chondrocostal junction syndrome [Tietze] (principal); K21.9 Gastro-esophageal reflux disease without esophagitis; Z20.822 Contact with and (suspected) exposure to COVID-19; Z79.899 Other long term (current) drug therapy; Z98.890 Other specified postprocedural states
CPT/HCPCS: 36415; 80053; 83880; 84484; 85025; 85610; 87635; 87804; 87880; 93005

== ENCOUNTER 2024-08-07 06:18 | Emergency (ER) | payer MEDICARE ==
[~2024-08-07] VITALS: Ht 175.3 cm; Wt 79.4 kg
--- NOTE | 2024-08-07 06:42 | EKG ---
[facility] Test Date: 2024-08-07 Test Time: 06:40:22 Pat Name: KEISHA STROUD Department: [facility] Room: Gender: M Identifier Horse: [id number] : 1950 Requested By: MORIS REBOLLEDO Order Number: [id number] Reading MD: Ray Ash Measurements Intervals [place] Rate: 62 P: 38 WA: 128 QRS: 48 QRSD: 108 T: 42 QT: 390 QTc: 396 Interpretive Statements Sinus rhythm Compared to ECG 06/05/2023 16:44:52 Intraventricular conduction delay no longer present Electronically Signed On 08-08-2024 12:42:05 CDT by Ray Ash Please click the below link to view image of tracing.
--- NOTE | 2024-08-07 06:48 | ERN ---
ED Note History of Present Illness Stated Complaint: NAUSEA AND VOMITING Chief Complaint: Nausea,Vomiting,Diarrhea Time Seen by MD: 06:49 Dictation: This is a 74-year-old male who presented to the emergency room via EMS with complaints of nausea vomitings and diarrhea Allergies: Coded Allergies: No Known Drug Allergies (Unverified Allergy, Unknown, 01/11/21) Home Meds Active Scripts Pantoprazole Sodium (Protonix) 40 Mg Tablet.dr, 40 MG PO DAILY, #30 TAB 0 Refills Prov:LAURY SMITH [employer]ER 10/31/22 Amoxicillin/Potassium Clav (Amox Tr-K Clv 500-125 mg Tab) 1 Each Tablet, 1 EACH PO Q12H for 7 Days, #14 TAB Prov:LOIDA NGO NP 10/06/22 Mupirocin (Mupirocin Ointment) 22 Gm Oint, 1 APPL TP BID for 5 Days, #30 G Prov:JULIETA RIOS 09/09/22 Cephalexin (Cephalexin) 500 Mg Capsule, 500 MG PO TID for 10 Days, #30 CAP Prov:JULIETA RIOS 09/09/22 Phenazopyridine HCl (Pyridium) 100 Mg Tab, 100 MG PO TID, #15 TAB Prov:EH COLBERT MD 02/16/22 Cephalexin Monohydrate (Keflex) 500 Mg Cap, 500 MG PO TID, #30 CAP Prov:EH COLBERT MD 02/16/22 Sucralfate (Carafate) 1 Gm Tablet, 1 GM PO QIDP PRN for Stomach Pain, #60 TAB 1 Refill Prov:DEINSE MTZ MD 04/27/21 Cephalexin Monohydrate (Keflex) 500 Mg Cap, 500 MG PO TID PRN for uti, #15 CAP Prov:DIAMANTE CARMONA MD 01/13/21 Tramadol HCl/Acetaminophen (Ultracet Tablet) 1 Each Tablet, 1 EACH PO QID, #30 TAB Prov:ROBERTH ZAVALA 11/11/20 Docusate Sodium (Dok) 100 Mg Capsule, 100 MG PO DAILY for 30 Days, #30 CAP Prov:BERE GRACE 09/16/19 Reported Medications Tamsulosin HCl (Flomax) 0.4 Mg Cap.er.24h, 0.4 MG PO DAILY, CAPSULE. 01/12/21 Past Medical History Past Medical History: Constipation, GERD Additional Past Medical Hx: GASTRITIS Surgical History: Other Surgical History Other: PROSTATECTOMY, HERNIA Family History: Negative Social History: Negative, Lives with family, Other RN Note Reviewed/Agreed w/PFSH: Yes Review of System Dictation Constitutional: Negative for fever,chills, and weight loss Eyes: Negative for injury, pain,redness, and discharge ENT: Negative for injury,pain or swelling Cardiovascular: Negative for chest pain, palpitations, and edema Respiratory: Negative for shortness of breath, cough, and wheezing, Abdomen/GI: Negative for abdominal pain, positive for nausea, vomiting, diarrhea, Back: Negative for injury and pain : Negative for injury, bleeding and discharge MS/Extremity: Negative for injury and deformity Skin: Negative for rash, and discoloration Neuro: Negative for headache, weakness, numbness, tingling, and seizure Psych: Negative for suicide ideation, homicidal ideation, and hallucinations Initial Vital Sign VS Vital Signs Date Time Temp Pulse Resp B/P (MAP) Pulse Ox O2 Delivery O2 Flow Rate FiO2 08/07/24 06:45 99.0 60 18 116/50 99 Room Air* 0 21 Physical Exam Dictation General: awake, alert, NAD Head/Face: Normocephalic, atraumatic Eyes: PERRL, EOMI, vision at baseline ENT: oral cavity clear, TMs clear, no signs of infection Neck: Trachea midline, supple, no nuchal rigidity Cardiovascular: RRR, normal S1/S2, No MRGs, no JVD Respiratory: CTAB, no respiratory distress, No rales or wheezes Abdomen: Soft, non-tender, non-distended, normal bowel sounds, no guarding or rebound. Skin: Warm, dry, normal turgor, no rash MS/Extremity: Pulses equal, no cyanosis, neurovascular intact, FROM Neuro: COAx4, GCS 15, strength 5/5, CN 2-12 intact, normal cerebellar exam, normal gait, Psych: Normal behavior, mood, and affect normal Extremities-trace edema without any palpable cords, Homans sign is negative Results (Laboratory/Radiology) Laboratory/Radiology Laboratory Tests Test 08/07/24 06:38 08/07/24 09:30 White Blood Count 6.0 K/uL (4.8-10.8) Red Blood Count 4.39 MIL/uL (4.50-6.20) L Hemoglobin 13.9 g/dL (14.0-18.0) L Hematocrit 41.5 % (42-54) L Mean Corpuscular Volume 94.5 fL (79-99) Mean Corpuscular Hemoglobin 31.7 pg (27.0-33.0) Mean Corpuscular Hemoglobin Concent 33.5 g/dL (32.0-36.0) Red Cell Distribution Width 13.0 % (11.0-15.5) Platelet Count 192 K/uL (130-400) Mean Platelet Volume 9.6 fL (7.5-10.5) Immature Granulocyte % (Auto) 0.5 % (0-1) Neutrophils (%) (Auto) 82.4 % (40.0-77.0) H Lymphocytes (%) (Auto) 9.5 % (21.0-51.0) L Monocytes (%) (Auto) 7.2 % (3.0-13.0) Eosinophils (%) (Auto) 0.2 % (0.0-8.0) Basophils (%) (Auto) 0.2 % (0.0-5.0) Neutrophils # (Auto) 4.9 K/uL (1.8-7.7) Lymphocytes # (Auto) 0.6 K/uL (1.0-4.8) L Monocytes # (Auto) 0.4 K/uL (0.1-1.0) Eosinophils # (Auto) 0.01 K/uL (0.00-0.70) Basophils # (Auto) 0.01 K/uL (0.00-0.20) Absolute Immature Granulocyte (auto 0.03 K/uL (0-1) Nucleated Red Blood Cells 0.0 % (0.0-0.19) White Cell Morphology Comment See comments Sodium Level 137 mmol/L (136-145) Potassium Level 4.0 mmol/L (3.5-5.1) Chloride Level 104 mmol/L (101-111) Carbon Dioxide Level 28 mmol/L (21-32) Blood Urea Nitrogen 24 mg/dL (7-18) H Creatinine 0.8 mg/dL (0.5-1.3) Glomerular Filtration Rate Calc 92 mL/min (>90) Random Glucose 118 mg/dL (70-105) H Total Calcium 9.2 mg/dL (8.5-10.1) Lipase 24 U/L (16-77) Urine Color LIGHT-YELLOW (YELLOW) Urine Appearance CLEAR (CLEAR) Urine pH 7.0 (5.0-8.0) Urine Specific [place] 1.025 (1.001-1.031) Urine Protein 10 mg/dL (NEGATIVE) H Urine Glucose (UA) NEGATIVE mg/dL (NEGATIVE) Urine Ketones NEGATIVE mg/dL (NEGATIVE) Urine Occult Blood NEGATIVE (NEGATIVE) Urine Nitrate NEGATIVE (NEGATIVE) Urine Bilirubin NEGATIVE mg/dL (NEGATIVE) Urine Urobilinogen 0.2 mg/dL (0.2-1.0) Urine Leukocyte Esterase NEGATIVE Surinder/uL Urine RBC 2-5 /HPF (0-1) H Urine WBC 2-5 /HPF (0-1) H Urine Bacteria None /HPF (None Seen) Labs Reviewed?: Yes EKG Comment: Twelve lead EKG done on 08/07/2024 at 6:40 a.m. showed a heart rate of 62, MS interval 128, QRS 108, QT/QTC 390/396 Impression normal sinus rhythm with no acute STT wave changes. Interpreted by ER MD Dr. Aguirre X-RAY Comment: [address] [id number] IMAGING REPORT Signed PATIENT: KEISHA CHAUDHRY MR#: [id number] : 1950 SEX: M AGE: 74 LOCATION: [facility] ORDER STATUS: REG ER REPORT#: [id number] SERVICE [id number] REASON: evaluate SBO ORDERING PHYSICIAN: MORIS AGUIRRE MD PROCEDURE: ABD 1VW - ABD 1VW ABD 1VW HISTORY: Small bowel obstruction COMPARISON: None FINDINGS: A frontal projection of the abdomen was obtained. A nonspecific bowel gas pattern is seen. Fecal material is seen in the colon. Degenerative changes of the thoracolumbar spine are noted. Round radiopaque density is seen in the right pelvic region may be related to a reservoir. IMPRESSION: 1. A nonspecific bowel gas pattern is seen. Fecal material is seen in the colon. DICTATED BY: RUTHANN MONTANEZ MD DATE: 08/07/24 07 ELECTRONICALLY SIGNED BY: RUTHANN MONTANEZ MD DATE: 08/07/24 [address] [address] [address] [place] [id number] IMAGING REPORT Signed PATIENT: KEISHA CHAUDHRY MR#: [id number] : 1950 SEX: M AGE: 74 LOCATION: ED ORDER 6 STATUS: REG ER REPORT#: [id number] SERVICE 5 REASON: nausea vomitings ORDERING PHYSICIAN: MORIS AGUIRRE MD PROCEDURE: CXR1VW - CHEST 1VW CHEST 1VW HISTORY: Nausea and vomiting COMPARISON: None FINDINGS: A frontal projection of the chest was obtained. No acute pulmonary infiltrates is seen. The heart is normal in size. Degenerative changes are seen. Prominent interstitial markings are seen. No evidence of aortic calcification is seen. IMPRESSION: 1. No acute pulmonary infiltrate is seen. DICTATED BY: RUTHANN MONTANEZ MD DATE: 08/07/24 08 ELECTRONICALLY SIGNED BY: RUTHANN MONTANEZ MD DATE: 08/07/[address] Scan Comment: [address] [id number] IMAGING REPORT Signed PATIENT: KEISHA CHAUDHRY MR#: [id number] : 1950 SEX: M AGE: 74 LOCATION: [facility] ORDER [id number] STATUS: REG ER REPORT#: [id number] SERVICE [id number] REASON: abd pain ORDERING PHYSICIAN: ANNETTE HOGUE MD PROCEDURE: ABD PEL WO - CT ABDOMEN/PELVIS W/O CONTRAST CT ABDOMEN/PELVIS W/O CONTRAST HISTORY: Abdominal pain COMPARISON: 10/29/2022 TECHNIQUE: Multiple sequential axial images of the abdomen and pelvis were obtained from the dome of the diaphragm through symphysis pubis. Patient was not given contrast through intravenous route. Oral contrast was not given. FINDINGS: No pleural effusion is seen bilaterally. There is no evidence of parenchymal disease or pulmonary nodule of the visualized lower lungs. Degenerative changes of the thoracolumbar spine are present. The heart is not enlarged. The liver, spleen, adrenal glands and pancreas are unremarkable. There is no evidence of hydronephrosis bilaterally. There are bilateral perinephric fat stranding may be related to pyelonephritis. Urinalysis correlation may be helpful. No evidence of renal stone is seen. Fecal material is seen in the colon. There are normal size retroperitoneal and mesenteric lymph nodes. No ascites is seen. Atherosclerotic changes are present. There is reservoir noted in the right anterior pelvis. Penile implant is seen. There is diverticulosis. There is sigmoid colon wall thickening with adjacent fat stranding may be related to early acute diverticulitis. No focal abscess is seen. Pelvic sidewalls are symmetric bilaterally. Bladder is well distended without wall thickening. IMPRESSION: 1. There is diverticulosis. There is sigmoid colon wall thickening with adjacent fat stranding may be related to early acute diverticulitis. No focal abscess is seen. CT was performed with one or more following dose reduction techniques: automated exposure control, adjustment of the mA and kv according to patient's size, or use of a iterative reconstruction technique. DICTATED BY: RUTHANN MONTANEZ MD DATE: 08/07/24 1024 ELECTRONICALLY SIGNED BY: RUTHANN MONTANEZ MD DATE: 08/07/24 1028 ED Course ED Course Orders Procedure Category Date Status Time Cbc With Differential LAB 08/07/24 Complete 06:26 Urinalysis Profile LAB 08/07/24 Complete 06:26 12 Lead Ekg Tracing- EKG 08/07/24 Complete Technical 06:26 0.9%Nacl 1000ml (Ns PHA 08/07/24 In Process 1000ml) 06:30 Ondansetron 4mg Inj PHA 08/07/24 Complete (Zofran 4mg Inj) 06:30 Pantoprazole 40mg Inj PHA 08/07/24 Complete (Protonix 40mg Inj 06:30 Chest 1vw RAD 08/07/24 Resulted 06:26 Lipase LAB 08/07/24 Complete 06:26 Basic Metabolic Panel LAB 08/07/24 Complete 06:26 Abd 1vw RAD 08/07/24 Resulted 06:47 Ct Abdomen/Pelvis W/O CT 08/07/24 Resulted Contrast 09:56 Current Medications Medications (Trade) Dose Ordered Sig/Yue Route PRN Reason Start Time Stop Time Status Last Admin Dose Admin Ondansetron HCl (zoFRAN 4MG INJ) 4 mg ONCE ONCE IVP 08/07/24 06:30 08/07/24 06:31 DC 08/07/24 06:52 Pantoprazole Sodium (PROTonix 40MG INJ) 40 mg ONCE ONCE IVP 08/07/24 06:30 08/07/24 06:32 DC 08/07/24 06:52 Sodium Chloride 1,000 ml @ 125 mls/hr ONCE ONCE IV 08/07/24 06:30 08/07/24 14:29 08/07/24 06:52 Vital Signs Date Time Temp Pulse Resp B/P (MAP) Pulse Ox O2 Delivery O2 Flow Rate FiO2 08/07/24 08:30 54 16 138/71 95 Room Air* 0 21 08/07/24 06:55 98.4 62 18 116/48 98 Room Air 0 08/07/24 06:45 99.0 60 18 116/50 99 Room Air* 0 21 We will perform diagnostic labs, advanced imaging and administer medications according to the patient's complaint. Once the results are available, will review and personally interpreted the labs to rule out any acute life- threatening emergency the trach require immediate intervention and treatment. I will then re-evaluate the patient after treatment and diagnostic exams have return to determine whether the patient requires any further testing, can safely be discharged home or need further admission to hospital for additional treatment and evaluation. Medical Decision Making MDM MDM: DIFFERENTIAL DIAGNOSIS: VENTRICULITIS, ABDOMINAL PAIN, CONSTIPATION, PATIENT IS A 74-YEAR-OLD MALE COMING IN TO BE EVALUATED FOR ABDOMINAL PAIN. PATIENT HAS A HISTORY OF SMALL-BOWEL OBSTRUCTIONS INITIAL X-RAY DID NOT DISCLOSE ACUTE FINDINGS CT OF THE ABDOMEN DISCLOSE DIVERTICULITIS. WHITE BLOOD CELL COUNT WITHIN NORMAL LIMITS. PATIENT WILL BE DISCHARGED IN STABLE CONDITION WITH ORAL ANTIBIOTICS I DID ADVISED HIM APPROPRIATE FOLLOW UP WITH PCP IN 1-2 DAYS. Problem List Problem List: (1) Nausea vomiting and diarrhea (2) Abdominal pain DX & DISP Disposition: Discharge Departure Impression: Primary Impression: Abdominal pain Additional Impressions: Nausea vomiting and diarrhea, Diverticulitis Condition: Stable Additional Instructions: FOLLOW-UP WITH PRIMARY CARE PROVIDER IN 1 TO 2 DAYS. TAKE MEDICATIONS DIRECTED HERE IN THE EMERGENCY ROOM. OKAY TO CONTINUE HOME MEDICATIONS UNLESS OTHERWISE DISCUSSED DURING YOUR VISIT IN THE EMERGENCY ROOM TODAY. RETURN TO YOUR NEAREST EMERGENCY ROOM IF SYMPTOMS WORSEN OR IF THERE IS NO IMPROVEMENT. CALL 911 IF YOU NEED IMMEDIATE ASSISTANCE. TAKE TYLENOL [id number] NEEDED AND IF NO CONTRAINDICATIONS ARE PRESENT. INCREASE ORAL HYDRATION. A WOUND CULTURE OR URINE CULTURE WAS ORDERED HERE IN THE EMERGENCY ROOM DEPARTMENT PLEASE FOLLOW-UP WITH PRIMARY CARE PROVIDER AND ADVISE THEM TO GET REPEAT PORTS FROM OUR FACILITY. IF YOU HAD ANY MELANI WRAP/SPLINTS THAT WERE APPLIED HERE, PLEASE DO NOT REMOVE THEM UNTIL YOU SEE YOUR PRIMARY CARE OR SPECIALTY. REFERRALS: Referrals: LANRE MONTESINOS MD (PCP) Time of Disposition: 10:39 MORIS AGUIRRE MD Aug 07, 2024 06:48 ANNETTE HOGUE MD Aug 07, 2024 09:56
[2024-08-07] MEDS: PANTOPrazole 40 MG/VIAL IVP ONE (06:52)
[2024-08-07] MEDS: 0.9%NACL 1000ML 1,000 ML IV ONE (06:52)
[2024-08-07] MEDS: ondanSETRON 4MG INJ IVP ONE (06:52)
[2024-08-07 07:04] LABS: BASOPHILS # (AUTO) 0.01 K/uL (0.00-0.20); BASOPHILS % (AUTO) 0.2 % (0.0-5.0); EOSINOPHILS # (AUTO) 0.01 K/uL (0.00-0.70); EOSINOPHILS % (AUTO) 0.2 % (0.0-8.0); HEMATOCRIT 41.5 % (42-54); IMMATURE GRANULOCYTE ABSOLUTE 0.03 K/uL (0-1); LYMPHOCYTES # (AUTO) 0.6 K/uL (1.0-4.8); LYMPHOCYTES % (AUTO) 9.5 % (21.0-51.0); MEAN CORPUSCULAR HEMOGLOBIN 31.7 pg (27.0-33.0); MEAN CORPUSCULAR HGB CONC 33.5 g/dL (32.0-36.0); MEAN CORPUSCULAR VOLUME 94.5 fL (79-99); MONOCYTES # (AUTO) 0.4 K/uL (0.1-1.0); MONOCYTES % (AUTO) 7.2 % (3.0-13.0); NEUTROPHILS # (AUTO) 4.9 K/uL (1.8-7.7); NEUTROPHILS % (AUTO) 82.4 % (40.0-77.0); PLATELET COUNT (AUTO) 192 K/uL (130-400); RED BLOOD CELL COUNT(AUTO) 4.39 MIL/uL (4.50-6.20)
--- NOTE | 2024-08-07 07:41 | HMCIMG ---
ABD 1VW HISTORY: Small bowel obstruction COMPARISON: None FINDINGS: A frontal projection of the abdomen was obtained. A nonspecific bowel gas pattern is seen. Fecal material is seen in the colon. Degenerative changes of the thoracolumbar spine are noted. Round radiopaque density is seen in the right pelvic region may be related to a reservoir. IMPRESSION: 1. A nonspecific bowel gas pattern is seen. Fecal material is seen in the colon.
[2024-08-07 07:44] LABS: CREATININE 0.8 mg/dL (0.5-1.3)
--- NOTE | 2024-08-07 08:05 | HMCIMG ---
CHEST 1VW HISTORY: Nausea and vomiting COMPARISON: None FINDINGS: A frontal projection of the chest was obtained. No acute pulmonary infiltrates is seen. The heart is normal in size. Degenerative changes are seen. Prominent interstitial markings are seen. No evidence of aortic calcification is seen. IMPRESSION: 1. No acute pulmonary infiltrate is seen.
[2024-08-07 09:41] LABS: APPEARANCE,URINE CLEAR (CLEAR); BILIRUBIN,URINE NEGATIVE (NEGATIVE); COLOR,URINE LIGHT-YELLOW (YELLOW); GLUCOSE, URINE (UA) NEGATIVE (NEGATIVE); KETONES,URINE NEGATIVE (NEGATIVE); LEUKOCYTE ESTERASE ,URINE NEGATIVE Leu/uL (NEGATIVE); NITRATE,URINE NEGATIVE (NEGATIVE); OCCULT BLOOD,URINE NEGATIVE (NEGATIVE); PROTEIN,URINE 10 mg/dL (NEGATIVE); UROBILINOGEN,URINE 0.2 mg/dL (0.2-1.0)
[2024-08-07 09:42] LABS: ADD UA MICROSCOPIC YES
[2024-08-07 09:44] LABS: MUCUS,URINE RARE LPF (None Seen)
--- NOTE | 2024-08-07 10:28 | HMCIMG ---
CT ABDOMEN/PELVIS W/O CONTRAST HISTORY: Abdominal pain COMPARISON: 10/29/2022 TECHNIQUE: Multiple sequential axial images of the abdomen and pelvis were obtained from the dome of the diaphragm through symphysis pubis. Patient was not given contrast through intravenous route. Oral contrast was not given. FINDINGS: No pleural effusion is seen bilaterally. There is no evidence of parenchymal disease or pulmonary nodule of the visualized lower lungs. Degenerative changes of the thoracolumbar spine are present. The heart is not enlarged. The liver, spleen, adrenal glands and pancreas are unremarkable. There is no evidence of hydronephrosis bilaterally. There are bilateral perinephric fat stranding may be related to pyelonephritis. Urinalysis correlation may be helpful. No evidence of renal stone is seen. Fecal material is seen in the colon. There are normal size retroperitoneal and mesenteric lymph nodes. No ascites is seen. Atherosclerotic changes are present. There is reservoir noted in the right anterior pelvis. Penile implant is seen. There is diverticulosis. There is sigmoid colon wall thickening with adjacent fat stranding may be related to early acute diverticulitis. No focal abscess is seen. Pelvic sidewalls are symmetric bilaterally. Bladder is well distended without wall thickening. IMPRESSION: 1. There is diverticulosis. There is sigmoid colon wall thickening with adjacent fat stranding may be related to early acute diverticulitis. No focal abscess is seen. CT was performed with one or more following dose reduction techniques: automated exposure control, adjustment of the mA and kv according to patient's size, or use of a iterative reconstruction technique.
[2024-08-07] MEDS: ZOSYN 3.375GM +NS 50ML IV ONE (11:20)
[2024-08-07] MEDS ORDERED: METR375C2 PO (12:17)
[2024-08-07] MEDS ORDERED: CIPR-279 PO (12:17)
[2024-08-07 12:27] VITALS: BP 132/74; PULSE 64; RESP 16; TEMP 97.7; O2SAT 99
== END 2024-08-07 12:34 | disposition home or self-care (01) ==
LOC: EDH 06:18
DX: R10.9 Unspecified abdominal pain (principal); R11.2 Nausea with vomiting, unspecified; R19.7 Diarrhea, unspecified; K57.32 Diverticulitis of large intestine without perforation or abscess without bleeding; Z79.899 Other long term (current) drug therapy; Z90.79 Acquired absence of other genital organ(s)
CPT/HCPCS: 99285; 74176; 96365; 96375; 71045; 96366; 96361; 80048; 83690; 85025; 81001; 36415; 74018; 93005; J7030 ×2; J2405; J2543; J2470

== ENCOUNTER 2024-09-05 15:01 | Emergency (ER) | payer MEDICARE ==
[~2024-09-05] VITALS: Ht 175.3 cm; Wt 63.5 kg
[~2024-09-05 15:01] MED LIST changes: +CIPR-279 PO; +METR375C2 PO; -TAMS-1 PO; +TAMS-55 PO
--- NOTE | 2024-09-05 15:11 | ERN ---
ED Note History of Present Illness Stated Complaint: ABDOMINAL PAIN Chief Complaint: Abdominal Pain Time Seen by MD: 15:07 Dictation: 74-YEAR-OLD MALE COMING IN TODAY WITH COMPLAINTS OF EPIGASTRIC PAIN/BURNING WITH NAUSEA FOR THE LAST THREE DAYS. HE DENIES VOMITING NO CHEST PAIN NO BACK PAIN NO SOB. STATES HE HAS TAKEN AN UNKNOWN MEDICATION FOR THE PAIN [id number] HOWEVER DOES NOT HELP. Allergies: Coded Allergies: No Known Drug Allergies (Unverified Allergy, Unknown, 01/11/21) Home Meds Active Scripts Metronidazole (Flagyl) 375 Mg Capsule, 500 MG PO BID for 10 Days, #20 CAP Prov:ANNETTE HOGUE MD 08/07/24 Ciprofloxacin HCl (Cipro) 250 Mg Tablet, 500 MG PO BID for 10 Days, #20 TAB Prov:ANNETTE HOGUE MD 08/07/24 Pantoprazole Sodium (Protonix) 40 Mg Tablet.dr, 40 MG PO DAILY, #30 TAB 0 Refills Prov:LAURY SMITH REPRODUCTION ARTIST 10/31/22 Amoxicillin/Potassium Clav (Amox Tr-K Clv 500-125 mg Tab) 1 Each Tablet, 1 EACH PO Q12H for 7 Days, #14 TAB Prov:LOIDA NGO BUYER INTERN 10/06/22 Mupirocin (Mupirocin Ointment) 22 Gm Oint, 1 APPL TP BID for 5 Days, #30 G Prov:JULIETA RIOS 09/09/22 Cephalexin (Cephalexin) 500 Mg Capsule, 500 MG PO TID for 10 Days, #30 CAP Prov:JULIETA RIOS 09/09/22 Phenazopyridine HCl (Pyridium) 100 Mg Tab, 100 MG PO TID, #15 TAB Prov:EH COLEBRT MD 02/16/22 Cephalexin Monohydrate (Keflex) 500 Mg Cap, 500 MG PO TID, #30 CAP Prov:EH COLBERT MD 02/16/22 Sucralfate (Carafate) 1 Gm Tablet, 1 GM PO QIDP PRN for Stomach Pain, #60 TAB 1 Refill Prov:DENISE MTZ MD 04/27/21 Cephalexin Monohydrate (Keflex) 500 Mg Cap, 500 MG PO TID PRN for uti, #15 CAP Prov:DIAMANTE CARMONA MD 01/13/21 Tramadol HCl/Acetaminophen (Ultracet Tablet) 1 Each Tablet, 1 EACH PO QID, #30 TAB Prov:ROBERTH ZAVALA 11/11/20 Docusate Sodium (Dok) 100 Mg Capsule, 100 MG PO DAILY for 30 Days, #30 CAP Prov:BERE GRACE PRODUCT MARKETER 09/16/19 Reported Medications Tamsulosin HCl (Flomax) 0.4 Mg Cap.er.24h, 0.4 MG PO DAILY, CAPSULE. 01/12/21 Past Medical History Past Medical History: GERD Additional Past Medical Hx: GASTRITIS Surgical History: Other Surgical History Other: PROSTATECTOMY; HERNIA REPAIR Family History: Negative Social History: Negative, Lives with family, Other RN Note Reviewed/Agreed w/PFSH: Yes Review of System Dictation CONSTITUTIONAL: Negative except for HPI HEAD/FACE: Negative except for HPI EENT: Negative except for HPI RESPIRATORY: Negative except for HPI GASTROINTESTINAL/ABDOMINAL: Negative except for HPI epigastric pain with nausea GENITOURINARY: Negative except for HPI MUSCULOSKELETAL: Negative except for HPI INTEGUMENTARY: Negative except for HPI NEUROLOGICAL/PSYCH: Negative except for HPI HEMATOLOGIC/LYMPHATIC: Negative except for HPI All Systems Negative, Except as noted above. 13 point review of systems assessed and all negative except for above. Initial Vital Sign VS Vital Signs Date Time Temp Pulse Resp B/P (MAP) Pulse Ox O2 Delivery O2 Flow Rate FiO2 09/05/24 15:09 98.4 72 16 159/91 98 Room Air 0 Physical Exam Dictation Vital Signs reviewed General Appearance: Alert, oriented x 3, mild acute distress, well developed, nourished. Head and Face: non-traumatic. Eyes: PERRL, pink conjunctivas, eyelid no trauma, anterior chamber with arcus senilis. Ears: Pinnas intact and no signs of trauma or erythema ear canals clear and no discharge TM no erythema Nose: No discharge, no bleeding. Oropharynx: Mouth normal, tongue pink, pharynx clear,no erythema, tonsils no exudates, no abscesses noted, mucous membrane moist Neck: Supple, non-tender, no thyromegaly, no masses, no JVD, no bruits Breast:Deferred Chest:No tenderness, no crepitus, no paradoxical movement, no retractions Lungs:Clear, well-ventilated, symmetric, no rales, no wheezing, no rhonchi, no stridor, good breath sounds bilaterally Heart: Regular rate, regular rhythm, no murmur, no gallops Vascular: no peripheral edema, Abdomen: Soft, positive bowel sounds, nondistended, no guarding, Mild epigastric tenderness, no rebound, no masses no hepatomegaly, no splenomegaly, no Uribe's sign, no hernias. Rectal: Deferred Genital: Deferred Neurological: Normal speech, motor function intact, sensory function intact Musculoskeletal: Neck nontender, full range of motion, back nontender, full range of motion, Extremities: nontender, full range of motion Skin: Color pink, dry, no turgor, no rash, no lacerations, no abrasions, no contusions. Lymphatic: Deferred Results (Laboratory/Radiology) Laboratory/Radiology Laboratory Tests Test 09/05/24 15:50 White Blood Count 9.6 K/uL (4.8-10.8) Red Blood Count 4.40 MIL/uL (4.50-6.20) L Hemoglobin 14.0 g/dL (14.0-18.0) Hematocrit 41.2 % (42-54) L Mean Corpuscular Volume 93.6 fL (79-99) Mean Corpuscular Hemoglobin 31.8 pg (27.0-33.0) Mean Corpuscular Hemoglobin Concent 34.0 g/dL (32.0-36.0) Red Cell Distribution Width 12.7 % (11.0-15.5) Platelet Count 200 K/uL (130-400) Mean Platelet Volume 9.5 fL (7.5-10.5) Immature Granulocyte % (Auto) 0.4 % (0-1) Neutrophils (%) (Auto) 85.8 % (40.0-77.0) H Lymphocytes (%) (Auto) 6.7 % (21.0-51.0) L Monocytes (%) (Auto) 7.0 % (3.0-13.0) Eosinophils (%) (Auto) 0.0 % (0.0-8.0) Basophils (%) (Auto) 0.1 % (0.0-5.0) Neutrophils # (Auto) 8.2 K/uL (1.8-7.7) H Lymphocytes # (Auto) 0.6 K/uL (1.0-4.8) L Monocytes # (Auto) 0.7 K/uL (0.1-1.0) Eosinophils # (Auto) 0.00 K/uL (0.00-0.70) Basophils # (Auto) 0.01 K/uL (0.00-0.20) Absolute Immature Granulocyte (auto 0.04 K/uL (0-1) Nucleated Red Blood Cells 0.0 % (0.0-0.19) White Cell Morphology Comment See comments Sodium Level 136 mmol/L (136-145) Potassium Level 4.3 mmol/L (3.5-5.1) Chloride Level 103 mmol/L (101-111) Carbon Dioxide Level 24 mmol/L (21-32) Blood Urea Nitrogen 35 mg/dL (7-18) H Creatinine 1.2 mg/dL (0.5-1.3) Glomerular Filtration Rate Calc 63 mL/min (>90) Random Glucose 124 mg/dL (70-105) H Total Calcium 8.8 mg/dL (8.5-10.1) Troponin I High Sensitivity 8 ng/L (4-75) Lipase 33 U/L (16-77) Labs Reviewed?: Yes EKG Comment: [facility] Test Date: 2024-09-05 Test Time: 15:13:53 Pat Name: KEISHA STROUD Department: ED Room: Gender: M 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 ED Course ED Course Orders Procedure Category Date Status Time Cbc With Differential LAB 09/05/24 Complete 15:09 Troponin I High LAB 09/05/24 Complete Sensitivity 15:09 Urinalysis Profile LAB 09/05/24 Logged 15:09 12 Lead Ekg Tracing- EKG 09/05/24 Resulted Technical 15:09 Ondansetron 4mg Inj PHA 09/05/24 Complete (Zofran 4mg Inj) 15:30 Famotidine 20mg Vial PHA 09/05/24 Complete (Pepcid 20mg Vial) 15:30 Lipase LAB 09/05/24 Complete 15:09 Basic Metabolic Panel LAB 09/05/24 Complete 15:09 Lidocaine Hcl 2% PHA 09/05/24 Complete Viscous (Lidocaine Hcl 18:30 Mag/Alum/Simeth 30ml PHA 09/05/24 Complete (Maalox Plus 30ml) 18:30 Dicyclomine Hcl PHA 09/05/24 Complete (Bentyl 10mg/5ml 18:30 Current Medications Medications (Trade) Dose Ordered Sig/Yue Route PRN Reason Start Time Stop Time Status Last Admin Dose Admin Al Hydroxide/Mg Hydroxide (MAALox PLUS 30ML) 30 ml ONCE ONCE PO 09/05/24 18:30 09/05/24 18:31 DC 09/05/24 19:53 Dicyclomine HCl (Bentyl 10mg/5ml Syrup) 10 mg ONCE ONCE PO 09/05/24 18:30 09/05/24 18:31 DC 09/05/24 19:53 Famotidine (Pepcid 20mg Vial) 20 mg ONCE IV 09/05/24 15:30 09/05/24 19:30 DC 09/05/24 19:53 Lidocaine HCl (Lidocaine HCl 2% Viscous) 10 ml ONCE ONCE PO 09/05/24 18:30 09/05/24 18:31 DC 09/05/24 19:53 Ondansetron HCl (zoFRAN 4MG INJ) 4 mg ONCE IVP 09/05/24 15:30 09/05/24 19:30 DC 09/05/24 19:53 Vital Signs Date Time Temp Pulse Resp B/P (MAP) Pulse Ox O2 Delivery O2 Flow Rate FiO2 09/05/24 15:09 98.4 72 16 159/91 98 Room Air 0 1919/PATIENT REMAINS IN WAITING ROOM AT THIS TIME PENDING BED AVAILABILITY IN THE EMERGENCY ROOM. 1957/PATIENT STATES PAIN IS CONTROLLED AFTER GI COCKTAIL AND PEPCID. HE WILL BE DISCHARGED HOME TO FOLLOW UP WITH HIS DOCTOR, HE WILL BE DIAGNOSED WITH GASTRITIS AND WE WILL RECEIVE OMEPRAZOLE AND CARAFATE GIVEN INFORMATION ON A BLAND DIET. TAKE PORTION OF WORKUP IS NEGATIVE HEART Score Response (Comments) Value History: Low suspicion (0) 0 Age: > 65yrs (+2) 2 Risk Factors: 3+ risk factors (+2) 2 Initial Troponin: Normal limit (0) 0 Total 4 Medical Decision Making MDM MDM: DIFFERENTIAL DIAGNOSIS: GASTRITIS/PANCREATITIS/ACS/AMI/ELECTROLYTE IMBALANCE/DEHYDRATION/NAUSEA VOMITING RATIONALE: TESTS CONSIDERED AND ORDERED SECONDARY TO SHARED DECISION MAKING INCLUDE: EKG/LABS PREVIOUS OUTSIDE RECORDS REVIEWED: OLD ER VISITS. RISK OF COMPLICATION AND/OR MORBIDITY OR MORTALITY OF PATIENT MANAGEMENT: NONE MEDICATIONS-PER MEDICATION RECONCILIATION NEED FOR HOSPITALIZATION: PATIENT DOES NOT MEET CRITERIA FOR HOSPITALIZATION. PATIENT WISHES TO GO HOME NEED FOR EMERGENCY MAJOR/MINOR SURGERY: NO THERE ARE NO SOCIAL CONCERNS WITH THIS PATIENT. PRESCRIPTION DRUG MANAGEMENT CARAFATE/OMEPRAZOLE PRESCRIPTIONS WILL INCLUDE SYMPTOMATIC CARE PATIENT'S PRIOR EXTERNAL MEDICAL RECORDS FROM OTHER ER VISITS WERE REVIEWED BY ME INDICATED. PRIOR TESTING AND RESULTS FROM PREVIOUS VISITS WERE REVIEWED. PRIOR TESTS WERE TAKEN INTO ACCOUNT WITH MEDICAL DECISION MAKING AND RESOURCE UTILIZATION, INDEPENDENT HISTORIAN/HISTORIANS WERE USED TO OBTAIN COMPLETE MEDICAL HISTORY. I INDEPENDENTLY INTERPRETED THE TEST THAT WERE PERFORMED, RESULTS WERE REVIEWED BY ME AND CONSIDERED FINDINGS ON RADIOLOGY IF ORDERED. MEDICAL MANAGEMENT AND EXAMINATION INTERPRETATION DISCUSSIONS WERE HAD BY ME WITH OTHER QUALIFIED HEALTHCARE PROFESSIONALS INDICATED FOR THE PATIENT'S CARE. DX & DISP Disposition: Discharge Departure Impression: Primary Impression: Acute gastritis without hemorrhage Additional Impressions: Nausea and vomiting, Stage III chronic kidney disease Condition: Stable Scripts Ondansetron (Ondansetron Odt) 4 Mg Tab.rapdis 4 MG PO Q6HPRN PRN for nausea, #16 TAB 0 Refills Prov: KEVEN PERDUE NP 09/05/24 Omeprazole (Omeprazole) 40 Mg Capsule.dr 1 CAP PO DAILY for 30 Days, #30 CAP 0 Refills Prov: KEVEN PERDUE NP 09/05/24 Sucralfate (Carafate) 1 Gram Tablet 1 GM PO ACHS for 10 Days, #40 TAB Prov: KEVEN PERDUE BUYER INTERN 09/05/24 Additional Instructions: FOLLOW-UP WITH PRIMARY CARE PROVIDER IN 1 TO 2 DAYS. TAKE MEDICATIONS DIRECTED HERE IN THE EMERGENCY ROOM. OKAY TO CONTINUE HOME MEDICATIONS UNLESS OTHERWISE DISCUSSED DURING YOUR VISIT IN THE EMERGENCY ROOM TODAY. RETURN TO YOUR NEAREST EMERGENCY ROOM IF SYMPTOMS WORSEN OR IF THERE IS NO IMPROVEMENT. CALL 911 IF YOU NEED IMMEDIATE ASSISTANCE. TAKE TYLENOL OR MOTRIN LTOE-QQW-DCPUOXA NEEDED AND IF NO CONTRAINDICATIONS ARE PRESENT. INCREASE ORAL HYDRATION. A WOUND CULTURE OR URINE CULTURE WAS ORDERED HERE IN THE EMERGENCY ROOM DEPARTMENT PLEASE FOLLOW-UP WITH PRIMARY CARE PROVIDER AND ADVISE THEM TO GET REPEAT PORTS FROM OUR FACILITY. IF YOU HAD ANY MELANI WRAP/SPLINTS THAT WERE APPLIED HERE, PLEASE DO NOT REMOVE THEM UNTIL YOU SEE YOUR PRIMARY CARE OR SPECIALTY. FOLLOW A BLAND DIET WITH WATER FOR FLUIDS ONLY. NO SODA, NO ICE TEA, NO COFFEE, NO SPICY FOODS, NO CITRUS FRUIT JUICE UNTIL CLEARED BY YOUR PRIMARY CARE DOCTOR IN 1-2 DAYS. TAKE OMEPRAZOLE AND CARAFATE DIRECTED Referrals: OSWALDO ALFRED MD (PCP) Time of Disposition: 20:00 I have reviewed the case, and I agree with, Diagnosis and Plan KEVEN PERDUE NP Sep 05, 2024 15:11
--- NOTE | 2024-09-05 15:16 | EKG ---
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
[2024-09-05 15:56] LABS: BASOPHILS # (AUTO) 0.01 K/uL (0.00-0.20); BASOPHILS % (AUTO) 0.1 % (0.0-5.0); HEMATOCRIT 41.2 % (42-54); IMMATURE GRANULOCYTE ABSOLUTE 0.04 K/uL (0-1); LYMPHOCYTES # (AUTO) 0.6 K/uL (1.0-4.8); LYMPHOCYTES % (AUTO) 6.7 % (21.0-51.0); MEAN CORPUSCULAR HEMOGLOBIN 31.8 pg (27.0-33.0); MEAN CORPUSCULAR VOLUME 93.6 fL (79-99); MONOCYTES # (AUTO) 0.7 K/uL (0.1-1.0); NEUTROPHILS # (AUTO) 8.2 K/uL (1.8-7.7); NEUTROPHILS % (AUTO) 85.8 % (40.0-77.0); PLATELET COUNT (AUTO) 200 K/uL (130-400); RED CELL DISTRIBUTION WIDTH 12.7 % (11.0-15.5); WHITE BLOOD COUNT (AUTO) 9.6 K/uL (4.8-10.8)
[2024-09-05 16:04] LABS: CREATININE 1.2 mg/dL (0.5-1.3); POTASSIUM 4.3 mmol/L (3.5-5.1)
[2024-09-05] MEDS: FAMOTIDINE 20MG VIAL IV SCH (19:53)
[2024-09-05] MEDS: LIDOCAINE HCL 2% VISCOUS 15 ML UDCUP PO ONE (19:53)
[2024-09-05] MEDS: DICYCLOMINE HCL 10 MG/5 ML ML PO ONE (19:53)
[2024-09-05] MEDS: ondanSETRON 4MG INJ IVP SCH (19:53)
[2024-09-05] MEDS: MAG/ALUM/SIMETH 30 ML UDCUP PO ONE (19:53)
[2024-09-05] MEDS ORDERED: ONDA-243 PO (20:01)
[2024-09-05] MEDS ORDERED: SUCR1TAB28 PO (20:01)
[2024-09-05] MEDS ORDERED: OMEP40CA21 PO (20:01)
[2024-09-05 20:03] VITALS: BP 151/87; PULSE 70; RESP 16; TEMP 98.2; O2SAT 98
== END 2024-09-05 20:13 | disposition home or self-care (01) ==
LOC: EDH 15:01
DX: K29.00 Acute gastritis without bleeding (principal); R11.2 Nausea with vomiting, unspecified; N18.30 Chronic kidney disease, stage 3 unspecified; Z79.899 Other long term (current) drug therapy; Z87.19 Personal history of other diseases of the digestive system; Z90.79 Acquired absence of other genital organ(s)
CPT/HCPCS: 99284; 96374; 96375; 84484; 80048; 83690; 85025; 36415; 93005; J3490; J2405

== ENCOUNTER 2025-03-24 08:52 | Inpatient (IN) | payer MEDICARE, MEDICAID ==
[~2025-03-24] VITALS: Ht 175.3 cm; Wt 66.1 kg
[~2025-03-24 08:52] MED LIST changes: +OMEP40CA21 PO; +ONDA-243 PO; +SUCR1TAB28 PO
[2025-03-24 09:11] LABS: IMMATURE GRANULOCYTE ABSOLUTE 0.02 K/uL (0-1); NUCLEATED RED BLOOD CELLS 0.0 % (0.0-0.19); PLATELET COUNT (AUTO) 220 K/uL (130-400); RED BLOOD CELL COUNT(AUTO) 4.88 MIL/uL (4.50-6.20); RED CELL DISTRIBUTION WIDTH 12.6 % (11.0-15.5); WHITE BLOOD COUNT (AUTO) 7.3 K/uL (4.8-10.8)
[2025-03-24 09:17] LABS: CREATININE 1.0 mg/dL (0.5-1.3); GLOMERULAR FILTR. RATE CALC 78.0 mL/min (>90); GLUCOSE,RANDOM 122.0 mg/dL (70-105); SODIUM SERUM 139.0 mmol/L (136-145); UREA NITROGEN, BLOOD 20.0 mg/dL (7-18)
--- NOTE | 2025-03-24 09:18 | EKG ---
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
[2025-03-24 09:21] LABS: ASPARTATE AMINOTRANSFERASE 16.0 U/L (10-37); CREATINE KINASE, TOTAL 74.0 U/L (21-232); TOTAL PROTEIN, SERUM 7.0 g/dL (6.0-8.3)
[2025-03-24 10:43] LABS: APPEARANCE,URINE CLOUDY (CLEAR); GLUCOSE, URINE (UA) NEGATIVE (NEGATIVE); LEUKOCYTE ESTERASE ,URINE 25 Leu/uL (NEGATIVE); NITRATE,URINE 2+ (NEGATIVE); OCCULT BLOOD,URINE NEGATIVE (NEGATIVE)
[2025-03-24 10:44] LABS: ADD UA MICROSCOPIC YES
[2025-03-24 10:47] LABS: SQUAMOUS EPITHELIAL CELL,UR RARE /HPF (0-2)
--- NOTE | 2025-03-24 11:17 | ERN ---
General Chief Complaint: Abdominal Pain Stated Complaint: ABD PAIN X 3 DAYS W/NAUSEA AND VOMITING Time Seen by MD: 08:55 Source: patient History of Present Illness Initial Comments In his is a 75-year-old male coming in complaining of suprapubic pain. Patient states that this pain has been ongoing for a couple of days. Along with the his he has been having increased urination. Allergies: Coded Allergies: No Known Drug Allergies (Unverified Allergy, Unknown, 01/11/21) Home Meds Active Scripts Ondansetron (Ondansetron Odt) 4 Mg Tab.rapdis, 4 MG PO Q6HPRN PRN for nausea, #16 TAB 0 Refills Prov:KEVEN PERDUE 09/05/24 Omeprazole (Omeprazole) 40 Mg Capsule.dr, 1 CAP PO DAILY for 30 Days, #30 CAP 0 Refills Prov:KEVEN PERDUEP 09/05/24 Sucralfate (Carafate) 1 Gram Tablet, 1 GM PO ACHS for 10 Days, #40 TAB Prov:KEVEN PERDUE 09/05/24 Metronidazole (Flagyl) 375 Mg Capsule, 500 MG PO BID for 10 Days, #20 CAP Prov:ANNETTE HOGUE MD 08/07/24 Ciprofloxacin HCl (Cipro) 250 Mg Tablet, 500 MG PO BID for 10 Days, #20 TAB Prov:ANNETTE HOGUE MD 08/07/24 Pantoprazole Sodium (Protonix) 40 Mg Tablet.dr, 40 MG PO DAILY, #30 TAB 0 Refills Prov:LAURY SMITH [employer] 10/31/22 Amoxicillin/Potassium Clav (Amox Tr-K Clv 500-125 mg Tab) 1 Each Tablet, 1 EACH PO Q12H for 7 Days, #14 TAB Prov:LOIDA NGO BONE DRIER 10/06/22 Mupirocin (Mupirocin Ointment) 22 Gm Oint, 1 APPL TP BID for 5 Days, #30 G Prov:JULIETA RIOS 09/09/22 Cephalexin (Cephalexin) 500 Mg Capsule, 500 MG PO TID for 10 Days, #30 CAP Prov:JULIETA RIOS 09/09/22 Phenazopyridine HCl (Pyridium) 100 Mg Tab, 100 MG PO TID, #15 TAB Prov:EH COLBERT MD 02/16/22 Cephalexin Monohydrate (Keflex) 500 Mg Cap, 500 MG PO TID, #30 CAP Prov:EH COLBERT MD 02/16/22 Sucralfate (Carafate) 1 Gm Tablet, 1 GM PO QIDP PRN for Stomach Pain, #60 TAB 1 Refill Prov:DENISE MTZ MD 04/27/21 Cephalexin Monohydrate (Keflex) 500 Mg Cap, 500 MG PO TID PRN for uti, #15 CAP Prov:DIAMANTE CARMONA MD 01/13/21 Tramadol HCl/Acetaminophen (Ultracet Tablet) 1 Each Tablet, 1 EACH PO QID, #30 TAB Prov:ROBERTH ZAVALA 11/11/20 Docusate Sodium (Dok) 100 Mg Capsule, 100 MG PO DAILY for 30 Days, #30 CAP Prov:BERE GRACE 09/16/19 Reported Medications Tamsulosin HCl (Flomax) 0.4 Mg Cap.er.24h, 0.4 MG PO DAILY, CAPSULE. 01/12/21 Past Medical History Past Medical History: GERD, Other Medical History Other: GASTRITIS, DIZZINESS Past Surgical History: Other Surgical History Other: PROSTATECTOMY; HERNIA REPAIR Family History Family History: Negative Social History Social History: Negative, Lives with family, Other ROS Dictation CONSTITUTIONAL: No chills, no fever, no weakness, no diaphoresis, no malaise. HEAD/FACE: No signs of trauma. EENT: No eye pain, no blurred vision, no tearing, no double vision, no ear pain, no ear discharge, no nose pain, no nasal congestion, no throat pain, no throat swelling, no mouth pain. RESPIRATORY: No cough, no orthopnea, no SOB, no stridor, no wheezing. CARDIOVASCULAR: No chest pain, no edema, no palpitations, no syncope. GASTROINTESTINAL/ABDOMINAL: No abdominal pain, no constipation, no diarrhea, no nausea, no vomiting. GENITOURINARY: No abnormal discharge, dysuria, frequent urination, no hematuria. No complaints of pain in the genitals. MUSCULOSKELETAL: No back pain, no gout, no joint pain, no joint swelling, no muscle pain, no muscle stiffness, no neck pain. INTEGUMENTARY: No change in color, no change in hair/nails, no dryness, no lesion, no lumps, no rash. NEUROLOGICAL/PSYCH: No anxiety, not depressed, no emotional problem, no headache, no numbness, no pre-existing deficit, no history of seizures, no tremors, no weakness. HEMATOLOGIC/LYMPHATIC: Not anemic, no history of blood clots, no apparent bleeding, no bruising, glands not swollen. All Systems Negative, Except as Noted. Physical Exam Physical Exam Dictation VITAL SIGNS: Reviewed. GENERAL APPEARANCE: Alert, oriented x3, no acute distress, obese. HEAD AND FACE: Non-traumatic. EYES: PERRL, pink conjunctivas, eyelid no trauma, anterior chamber clear. EARS: Pinnas intact and no signs of trauma or erythema. Ear canals clear and no discharge. TMs no erythema. NOSE: No discharge, no bleeding. OROPHARYNX: Mouth normal, teeth no caries, tongue pink. Pharynx clear, no erythema. Tonsils no exudates, no abscesses noted. Mucous membrane moist. NECK: Supple, non-tender, no thyromegaly, no masses, no JVD, no bruits. BREAST: Deferred. CHEST: No tenderness, no crepitus, no paradoxical movement, no retractions. LUNGS: Clear, well-ventilated, symmetric, no rales, no wheezing, no rhonchi, no stridor, good breath sounds bilaterally. HEART: Regular rate, regular rhythm, no murmur, no gallops. VASCULAR: No peripheral edema. ABDOMEN: Soft, positive bowel sounds, nondistended, no guarding, nontender, no rebound, no masses no hepatomegaly, no splenomegaly, no Uribe's sign, no hernias. RECTAL: Deferred. GENITAL: Deferred. NEUROLOGICAL: Normal speech, gross motor function intact, gross sensory function intact. MUSCULOSKELETAL: Neck nontender, full range of motion, back nontender, full range of motion. EXTREMITIES: Nontender, full range of motion. SKIN: Color pink, dry, no turgor, no rash, no lacerations, no abrasions, no contusions. LYMPHATICS: Deferred. Results Laboratory and Microbiology Lab and Micro Result Laboratory Tests Test 03/24/25 09:02 03/24/25 10:28 White Blood Count 7.3 K/uL (4.8-10.8) Red Blood Count 4.88 MIL/uL (4.50-6.20) Hemoglobin 15.0 g/dL (14.0-18.0) Hematocrit 45.2 % (42-54) Mean Corpuscular Volume 92.6 fL (79-99) Mean Corpuscular Hemoglobin 30.7 pg (27.0-33.0) Mean Corpuscular Hemoglobin Concent 33.2 g/dL (32.0-36.0) Red Cell Distribution Width 12.6 % (11.0-15.5) Platelet Count 220 K/uL (130-400) Mean Platelet Volume 9.2 fL (7.5-10.5) Immature Granulocyte % (Auto) 0.3 % (0-1) Neutrophils (%) (Auto) 87.1 % (40.0-77.0) H Lymphocytes (%) (Auto) 6.4 % (21.0-51.0) L Monocytes (%) (Auto) 6.1 % (3.0-13.0) Eosinophils (%) (Auto) 0.0 % (0.0-8.0) Basophils (%) (Auto) 0.1 % (0.0-5.0) Neutrophils # (Auto) 6.4 K/uL (1.8-7.7) Lymphocytes # (Auto) 0.5 K/uL (1.0-4.8) L Monocytes # (Auto) 0.5 K/uL (0.1-1.0) Eosinophils # (Auto) 0.00 K/uL (0.00-0.70) Basophils # (Auto) 0.01 K/uL (0.00-0.20) Absolute Immature Granulocyte (auto 0.02 K/uL (0-1) Nucleated Red Blood Cells 0.0 % (0.0-0.19) White Cell Morphology Comment See comments Sodium Level 139 mmol/L (136-145) Potassium Level 4.1 mmol/L (3.5-5.1) Chloride Level 101 mmol/L (101-111) Carbon Dioxide Level 33 mmol/L (21-32) H Blood Urea Nitrogen 20 mg/dL (7-18) H Creatinine 1.0 mg/dL (0.5-1.3) Glomerular Filtration Rate Calc 78 mL/min (>90) Random Glucose 122 mg/dL (70-105) H Total Calcium 9.7 mg/dL (8.5-10.1) Total Bilirubin 0.7 mg/dL (0.2-1.0) Aspartate Amino Transf (AST/SGOT) 16 U/L (10-37) Alanine Aminotransferase (ALT/SGPT) 18 U/L (12-78) Alkaline Phosphatase 77 U/L (50-136) Total Creatine Kinase 74 U/L (21-232) Troponin I High Sensitivity 9 ng/L (4-75) Total Protein 7.0 g/dL (6.0-8.3) Albumin 3.8 g/dL (3.5-5.0) Lipase 24 U/L (16-77) Urine Color YELLOW (YELLOW) Urine Appearance CLOUDY (CLEAR) H Urine pH 7.0 (5.0-8.0) Urine Specific [place] 1.019 (1.001-1.031) Urine Protein NEGATIVE mg/dL (NEGATIVE) Urine Glucose (UA) NEGATIVE mg/dL (NEGATIVE) Urine Ketones 10 mg/dL (NEGATIVE) H Urine Occult Blood NEGATIVE (NEGATIVE) Urine Nitrate 2+ (NEGATIVE) H Urine Bilirubin NEGATIVE mg/dL (NEGATIVE) Urine Urobilinogen 2.0 mg/dL (0.2-1.0) H Urine Leukocyte Esterase 25 Surinder/uL (NEGATIVE) H Urine RBC 2-5 /HPF (0-1) H Urine WBC 11-25 /HPF (0-1) H Urine Squamous Epithelial Cells RARE /HPF (0-2) Urine Amorphous Crystals (Auto) RARE /LPF (None Seen) Urine Bacteria MOD /HPF (None Seen) Labs Reviewed?: Yes EKG/XRAY/US/CT/MRI EKG Comment 03/24/2025 time 9:07 a.m. Ventricular rate 69 Sinus rhythm [place] [address] wave elevation or depression X-RAY Comment [place] [id number] [address] IMAGING REPORT Signed PATIENT: KEISHA CHAUDHRY MR#: [id number] : 1950 SEX: M AGE: 75 LOCATION: [facility] ORDER [id number] STATUS: REG ER REPORT#: [id number] SERVICE REASON: Adominal Pain ORDERING PHYSICIAN: ANNETTE HOGUE MD PROCEDURE: ABD 2VW - ABD COMP DECUB/ERECT VWS EXAM: CR Abdomen, 5 View. CLINICAL HISTORY: Adominal Pain COMPARISON: None provided. FINDINGS: BOWEL: The bowel gas pattern is within normal limits. Abundant colonic fecal matter may reflect constipation. PERITONEUM/SOFT TISSUES: No free air evident. No pathologic appearing calcification. BONES: No acute osseous abnormality. Radiopacity overlying the right pelvis, presumed to reflect an external object. IMPRESSION: 1. No acute abdominal findings. 2. Abundant colonic fecal matter may reflect constipation. /[place] DICTATED BY: EMILY LLOYD Jr., MD DATE: 03/24/251221 ELECTRONICALLY SIGNED BY: EMILY LLOYD Jr., MD DATE: 03/24/251221 MDM MDM: Differential diagnosis: Constipation, UTI, generalized body weakness, Rationale: Tests considered and ordered secondary to shared decision making i nclude: labs, ECG and radiology Previous outside records reviewed: Old ER visits. Risk of complication and/or morbidity or mortality of patient management: None Medications-Per medication reconciliation Need for hospitalization: Patient does meet criteria for hospitalization. Need for emergency major/minor surgery: No There are no social concerns with this patient. Prescription drug management Prescriptions will include symptomatic care Patient's prior external medical records from other ER visits were reviewed by me as indicated. Prior testing and results from previous visits were reviewed. Prior tests were taken into account with medical decision making and resource utilization, independent historian/historians were used to obtain complete medical history. I independently interpreted the test that were performed, results were reviewed by me and considered findings on radiology if ordered. Medical management and examination interpretation discussions were had by me with other qualified healthcare professionals as indicated for the patient's care. Patient will be admitted under the care of hospitalist group for ongoing management. ED Course Orders Procedure Category Date Status Time Cbc With Differential LAB 03/24/25 Complete 08:56 Comprehensive LAB 03/24/25 Complete Metabolic Panel 08:56 Troponin I High LAB 03/24/25 Complete Sensitivity 08:56 Urinalysis Profile LAB 03/24/25 Complete 08:56 Abd Comp Decub/Erect RAD 03/24/25 Resulted VWS 08:56 12 Lead Ekg Tracing- EKG 03/24/25 Resulted Technical 08:56 Creatine Kinase, Total LAB 03/24/25 Complete 08:56 Lipase LAB 03/24/25 Complete 08:56 Culture Urine SAMUEL 03/24/25 Logged 10:45 0.9%Nacl 1000ml (Ns PHA 03/24/25 Complete 1000ml) 11:30 Ceftriaxone 1g Vial PHA 03/24/25 Complete (Rocephine 1g Inj) 12:00 Lactulose 20 Gm/30 Ml PHA 03/24/25 Complete Udcup (Constulose 12:00 Current Medications Medications (Trade) Dose Ordered Sig/Yue Route PRN Reason Start Time Stop Time Status Last Admin Dose Admin Ceftriaxone Sodium (ROCEphine 1G INJ) 1 gm ONCE ONCE IVPB 03/24/25 12:00 03/24/25 12:01 DC Lactulose (Constulose 20gm/ 30ml Udcup) 20 gm ONCE ONCE PO 03/24/25 12:00 03/24/25 12:01 DC Sodium Chloride 1,000 ml @ 0 mls/hr ONCE ONCE IV 03/24/25 11:30 03/24/25 11:31 DC Vital Signs Date Time Temp Pulse Resp B/P (MAP) Pulse Ox O2 Delivery O2 Flow Rate FiO2 03/24/25 11:46 98.2 64 15 166/84 95 Room Air* 0 03/24/25 11:42 98.2 64 15 179/100 98 Room Air* 0 03/24/25 10:31 98.2 67 18 150/92 98 Room Air* 0 03/24/25 08:54 98.1 95 Room Air 0 DX & DISP Disposition: Inpatient Decision to Admit Time: 12:07 Departure Impression: Primary Impression: UTI (urinary tract infection) Additional Impression: Constipation Condition: Stable Referrals: OSWALDO ALFRED MD (PCP) ANNETTE HOGUE MD Mar 24, 2025 11:17
--- NOTE | 2025-03-24 11:22 | HMCIMG ---
EXAM: CR Abdomen, 5 View. CLINICAL HISTORY: Adominal Pain COMPARISON: None provided. FINDINGS: BOWEL: The bowel gas pattern is within normal limits. Abundant colonic fecal matter may reflect constipation. PERITONEUM/SOFT TISSUES: No free air evident. No pathologic appearing calcification. BONES: No acute osseous abnormality. Radiopacity overlying the right pelvis, presumed to reflect an external object. IMPRESSION: 1. No acute abdominal findings. 2. Abundant colonic fecal matter may reflect constipation. /[place]
--- NOTE | 2025-03-24 12:09 | HP ---
[facility] HISTORY AND PHYSICAL Date of Service: Mar 24, 2025 Time of Service: 12:09 HISTORY OF PRESENT ILLNESS: 75-year-old male with past medical history of GERD, history of prostate cancer who presented to the hospital secondary to abdominal pain. The patient states for the past three days he has noted that he has been having pain in the suprapubic area. He is able to urinate at home. Denies any fever, chills but feels nauseated without any episodes of vomiting. Denied any melena, hematochezia, hematemesis. He has not been able to eat due to feeling nauseated. Denied any chest pain, shortness breath, falls, syncopal episode. Denied any hematuria. He has had a previous urological procedure for his prostate in the past. Patient's labs showed white count of 7.3, hemoglobin was 15.0, platelet count was 220 K sodium was 139, potassium was 4.1, creatinine was 1.0, bicarb was 33, BUN was 20, LFTs were unremarkable, troponin was negative x1 Patient underwent a abdominal x-ray which showed no acute findings. There was findings concerning for constipation. REVIEW OF SYSTEMS CONSTITUTIONAL: Denies fevers, chills, or night sweats. No unintentional weight loss reported. NEUROLOGICAL: Denies headache, amaurosis fugax, motor weakness, sensory deficit, vertigo/spinning sensation, gait abnormalities, or tremors. ENT: No hearing loss, otalgia, otorrhea, rhinitis, rhinorrhea, hoarseness, or sore throat. CARDIOVASCULAR: Denies any exertional angina, dyspnea on exertion, orthopnea, paroxysmal nocturnal dyspnea, palpitations, life-threatening arrhythmias, claudication. PULMONARY: Denies any shortness of breath, cough, phlegm/sputum, hemoptysis, pleuritic chest pain. SLEEP: Denies morning headaches, daytime somnolence or napping. Denies difficulty falling asleep, staying asleep, waking from sleep. Denies knowledge of snoring. GASTROINTESTINAL: Abdominal pain, nausea. Denied any vomiting, melena, hematochezia, hematemesis GENITOURINARY: Denies urgency, nocturia, hematuria or incontinence (Storage/Irritative symptoms.) Low urinary stream, straining to void, urinary intermittency or hesitancy, splitting of the voiding stream, terminal dribbling. Positive for increased urinary frequency ENDOCRINOLOGIC: Denies polyuria, polydipsia, polyphagia or heat/cold intolerances. HEMATOLOGIC: Denies thrombophilia/previous clots, or coagulopathy/bleeding disorders. ONCOLOGIC: Denies personal history of malignancy. DERMATOLOGIC: Denies rashes or pruritus. PSYCHIATRIC: Denies any suicidal or homicidal ideation. Denies hallucinations. PAST MEDICAL HISTORY: History of GERD, history of previous bowel obstruction PAST SURGICAL HISTORY: History of hernia repair, history of prostate surgery PAST SOCIAL HISTORY: Denied any smoking, alcohol, drug use FAMILY HISTORY: Denied any pertinent family history Coded Allergies: No Known Drug Allergies (Unverified Allergy, Unknown, 01/11/21) PHYSICAL EXAM GENERAL APPEARANCE: The patient is awake, alert, and oriented, in no acute cardiopulmonary distress. NEUROLOGICAL: Cranial nerves II-XII grossly intact. Motor is 5/5 in bilateral upper and lower extremities proximal to distal. No sensory deficits. HEENT: Face is symmetric. Pupils are equal and reactive. Extraocular movements are intact. NECK: Supple. No JVD. No thyromegaly. No submental, submandibular, pre- /postauricular, occipital or supraclavicular lymphadenopathy. CHEST: Normal chest expansion. No Telemetry. LUNGS: Absence of any rales, rhonchi or any wheezing. CARDIOVASCULAR: Regular. S1 and S2 normal. No appreciable rubs, murmurs or gallops. ABDOMEN: Soft, no guarding, no rebound. Mild tenderness in the suprapubic area : Deferred. No [place]. EXTREMITIES: Non-edematous and not cyanotic. No clubbing. Good capillary refill. SKIN: No skin breakdown. Vital Sign (Last 24 Hours) 03/24/25 11:46 Temp 98.2 Pulse 64 Resp 15 B/P (MAP) 166/84 Pulse Ox 95 O2 Delivery Room Air* O2 Flow Rate 0 FiO2 21 LABS: Laboratory: Test 03/24/25 10:28 03/24/25 09:02 Range/Units Urine Color YELLOW YELLOW Urine Appearance CLOUDY H CLEAR Urine pH 7.0 5.0-8.0 Urine Specific [place] 1.019 1.001-1.031 Urine Protein NEGATIVE NEGATIVE mg/dL Urine Glucose (UA) NEGATIVE NEGATIVE mg/dL Urine Ketones 10 H NEGATIVE mg/dL Urine Occult Blood NEGATIVE NEGATIVE Urine Nitrate 2+ H NEGATIVE Urine Bilirubin NEGATIVE NEGATIVE mg/dL Urine Urobilinogen 2.0 H 0.2-1.0 mg/dL Urine Leukocyte Esterase 25 H NEGATIVE Surinder/uL Urine RBC 2-5 H 0-1 /HPF Urine WBC 11-25 H 0-1 /HPF Urine Squamous Epithelial Cells RARE 0-2 /HPF Urine Amorphous Crystals (Auto) RARE None Seen /LPF Urine Bacteria MOD None Seen /HPF White Blood Count 7.3 4.8-10.8 K/uL Red Blood Count 4.88 4.50-6.20 MIL/uL Hemoglobin 15.0 14.0-18.0 g/dL Hematocrit 45.2 42-54 % Mean Corpuscular Volume 92.6 79-99 fL Mean Corpuscular Hemoglobin 30.7 27.0-33.0 pg Mean Corpuscular Hemoglobin Concent 33.2 32.0-36.0 g/dL Red Cell Distribution Width 12.6 11.0-15.5 % Platelet Count 220 130-400 K/uL Mean Platelet Volume 9.2 7.5-10.5 fL Immature Granulocyte % (Auto) 0.3 0-1 % Neutrophils (%) (Auto) 87.1 H 40.0-77.0 % Lymphocytes (%) (Auto) 6.4 L 21.0-51.0 % Monocytes (%) (Auto) 6.1 3.0-13.0 % Eosinophils (%) (Auto) 0.0 0.0-8.0 % Basophils (%) (Auto) 0.1 0.0-5.0 % Neutrophils # (Auto) 6.4 1.8-7.7 K/uL Lymphocytes # (Auto) 0.5 L 1.0-4.8 K/uL Monocytes # (Auto) 0.5 0.1-1.0 K/uL Eosinophils # (Auto) 0.00 0.00-0.70 K/uL Basophils # (Auto) 0.01 0.00-0.20 K/uL Absolute Immature Granulocyte (auto 0.02 0-1 K/uL Nucleated Red Blood Cells 0.0 0.0-0.19 % White Cell Morphology Comment See comments Sodium Level 139 136-145 mmol/L Potassium Level 4.1 3.5-5.1 mmol/L Chloride Level 101 101-111 mmol/L Carbon Dioxide Level 33 H 21-32 mmol/L Blood Urea Nitrogen 20 H 7-18 mg/dL Creatinine 1.0 0.5-1.3 mg/dL Glomerular Filtration Rate Calc 78 >90 mL/min Random Glucose 122 H 70-105 mg/dL Total Calcium 9.7 8.5-10.1 mg/dL Total Bilirubin 0.7 0.2-1.0 mg/dL Aspartate Amino Transf (AST/SGOT) 16 10-37 U/L Alanine Aminotransferase (ALT/SGPT) 18 12-78 U/L Alkaline Phosphatase 77 50-136 U/L Total Creatine Kinase 74 21-232 U/L Troponin I High Sensitivity 9 4-75 ng/L Total Protein 7.0 6.0-8.3 g/dL Albumin 3.8 3.5-5.0 g/dL Lipase 24 16-77 U/L DIAGNOSTICS / RADIOLOGY: [ ] ASSESSMENT: Suspected UTI POA Constipation POA History of bowel obstruction POA Hypertension History of GERD PLAN: -the patient to be admitted to medical-surgical unit -in reference to UTI. Follow up on urine culture. Patient will be started on Zosyn. -in reference to abdominal pain. We will request a CT abdomen pelvis to rule out bowel obstruction. The patient will be NPO for now. Patient will be started on NS for gentle hydration. -obtain patient's home medications which will be reconciled once available -patient to be started on amlodipine p.o. for blood pressure control - check TSH, hemoglobin A1c -further orders per hospitalization course Advanced Care Planning Which of the following were discussed: Hospice care: Yes __ No _x_ Therapeutic options: Yes __ No __ Advance directives: Yes __ No __ Other discussions: Discussed with who?: patient (Patient, family or surrogates) Voluntary nature of this service was explained to the patient? Yes _x_ No __ Amount of time spent: 25 minutes ALEJANDRINA Johnson MD, MD Mar 24, 2025 12:09
[2025-03-24] MEDS: 0.9%NACL 1000ML 1,000 ML IV ONE (12:10)
[2025-03-24] MEDS: LACTULOSE 20 GM/30 ML UDCUP PO ONE (12:12)
[2025-03-24] MEDS ORDERED: PoTASSium chl 10% ELIXIR 20MEQ 20 MEQ/15 ML UDCUP PO PRN (12:30)
[2025-03-24] MEDS ORDERED: 0.9%NACL 50ML IV SCH (12:30)
[2025-03-24] MEDS ORDERED: MAGNESIUM 2GM PREMIX 50ML 50 ML IV PRN (12:30)
[2025-03-24] MEDS ORDERED: ZOSYN 3.375GM +NS 50ML IVPB SCH (12:30)
--- NOTE | 2025-03-24 12:40 | NUR ---
BED ASSIGNMENT: REYMUNDO GASCA RN HS SHE ASSIGNED ED 12 TO BED 431 NAINA TO BE THE NURSE AT [id number]. RYLEE Juarez RN MADE AWARE
[2025-03-24] MEDS ORDERED: MECL25TA39 PO (12:48)
[2025-03-24] MEDS ORDERED: MELO-106 PO (12:48)
--- NOTE | 2025-03-24 13:15 | NUR ---
REPORT GIVEN TO NAINA KEARNEY AT 1315, PT STABLE NO DISTRESS VITALS WNL NO C/O PAIN NOW. PT TAKEN TO CT RAD DEPT FOR SCAN THEN TO ROOM 413 BY [facility]. WITH PERSONAL BELONGINGS.
--- NOTE | 2025-03-24 13:30 | NUR ---
Resident arrived to medical unit via wheelchair from ER. Resident admitted with Dx. Constipation. HX. prostate cancer, umbilical hernia, constipation. Alert and oriented x4. PIV 20g to LFA. Patient of Dr. Garcia. Head to toe assessment was done. Resident skin condition intact. No edema present. Diet NPO. As per MD. Pending SX cunsult with Dr. Glasgow. NS running at 100ml.
--- NOTE | 2025-03-24 15:16 | HMCIMG ---
EXAM: CT Abdomen and Pelvis without IV contrast CLINICAL HISTORY: suprapubic abdominal apin, constipation TECHNIQUE: Axial computed tomography images of the abdomen and pelvis without intravenous contrast. CT scan performed according to ALARA. Automated exposure control used during exam. CONTRAST: without intravenous contrast. COMPARISON: None provided. FINDINGS: There is mild atelectasis and/or parenchymal scarring at the lung bases. Limited evaluation of the abdominal organs without intravenous contrast. There is no focal abnormality appreciated within the gallbladder, either adrenal gland, spleen, or pancreas. There is mild bilateral perinephric fat stranding that may reflect renal parenchymal disease, recommend correlation with laboratory parameters. There is no renal calculus or hydronephrosis. The bladder is unremarkable. Low-attenuation foci within the liver may reflect cysts. The liver is otherwise unremarkable. There is colonic diverticulosis without CT evidence for diverticulitis. Prominent fluid-filled loops of small bowel within the right lower quadrant, measuring up to 3.7 cm. These loops are distended with fecalized contents. Proximal small bowel loops and the colon are normal in caliber. There is no pneumatosis intestinalis or pneumoperitoneum. Penile pump device within the right lower quadrant. There is no ascites or lymphadenopathy. Atherosclerotic vascular calcifications are noted. There is no acute or suspicious osseous abnormality. IMPRESSION: 1. Prominent fluid-filled loops of small bowel within the right lower quadrant, measuring up to 3.7 cm, distended with fecalized contents. Findings may reflect a partial small bowel obstruction versus a small bowel ileus. 3. Mild bilateral perinephric fat stranding, may reflect renal parenchymal disease. /[place]
[2025-03-24 16:00] VITALS: BP 148/95; PULSE 72; RESP 16; TEMP 98
[2025-03-24] MEDS: 0.9%NACL 1000ML 1,000 ML IV SCH (16:13)
[2025-03-24] MEDS: amLODIPine 5 MG TAB PO ONE (16:13)
[2025-03-24] MEDS: ZOSYN 3.375GM +NS 50ML IVPB SCH (16:16)
--- NOTE | 2025-03-24 16:22 | NUR ---
DCP:HOME Pt currently lives at home with 2 of his daughters. Pt denies having any DME or home health services. pt states that he has a provider that goes to his home 4 hrs a day and assist with home management and meals. PCP is Dr. Evan Mayfield and uses [facility] for any RX needs. At DC pt will want to go home and family can assist with transportation.
--- NOTE | 2025-03-24 18:20 | NUR ---
Order given by MD Garcia for NG tube placement with low suction. Patient refuse treatment at this time. Refusal form was sign. MD briggs.
--- NOTE | 2025-03-24 19:00 | NUR ---
ng tube patient refused the ng tube placement. i let dr. dyer know. he is aware. no new orders given
[2025-03-24 19:10] VITALS: O2SAT 95
[2025-03-24 20:00] VITALS: BP 141/81; PULSE 76; RESP 18
[2025-03-24] MEDS: FAMOTIDINE 20MG VIAL IV SCH (20:48)
--- NOTE | 2025-03-24 21:00 | NUR ---
bowel movement patient had a large brown formed bowel movement. he has no abdominal pain at this time.
[2025-03-25] VITALS (8 sets, daily range): BP systolic 116–148; BP diastolic 68–91; PULSE 61–69; RESP 16–18; TEMP 97.7–98.5; O2SAT 96
[2025-03-25 05:54] LABS: IMMATURE GRANULOCYTE ABSOLUTE 0.01 K/uL (0-1); NUCLEATED RED BLOOD CELLS 0.0 % (0.0-0.19); PLATELET COUNT (AUTO) 188 K/uL (130-400); RED BLOOD CELL COUNT(AUTO) 4.12 MIL/uL (4.50-6.20); RED CELL DISTRIBUTION WIDTH 12.9 % (11.0-15.5); WHITE BLOOD COUNT (AUTO) 5.2 K/uL (4.8-10.8)
[2025-03-25 06:14] LABS: CREATININE 1.1 mg/dL (0.5-1.3); GLOMERULAR FILTR. RATE CALC 70.0 mL/min (>90); GLUCOSE,RANDOM 96.0 mg/dL (70-105); SODIUM SERUM 139.0 mmol/L (136-145); UREA NITROGEN, BLOOD 15.0 mg/dL (7-18)
[2025-03-25] MEDS: PoTASSium chloRIDE 20MEQ ER 20 MEQ ERTAB PO PRN (06:30)
[2025-03-25] MEDS: amLODIPine 5 MG TAB PO SCH (09:00)
--- NOTE | 2025-03-25 09:13 | PN ---
[facility] PROGRESS NOTE Date of Service: Mar 25, 2025 Time of Service: :08 SUBJECTIVE: 03/25 patient has been seen and examined, case discussed with the RN, no acute events overnight, remains admitted to the medical floor, comfortably bed, alert oriented x3, had a BM earlier this morning. blood pressure 117/68, afebrile, saturating normal on room air. CBC shows hemoglobin of 12.9, crit 37.7, with a white blood cell count of 5.2, platelet count of 188, sodium 139, x3 0.7, BUN 50, creatinine 1.1, UA positive for leukocyte esterase, WBC 11-25. Urine culture greater than [id number] CFU, identification and susceptibility in process, sent to reference lab. X-ray of the abdomen no acute abdominal findings, NPO now fecal material may reflect constipation. CT of the abdomen showing prominent fluid-filled loops of small bowel within the right lower quadrant, measuring up to 3.7 cm, distended with the fecalized content, findings may reflect a partial small-bowel obstruction versus a small bowel ileus, mild bilateral perinephric fat stranding, may reflect renal parenchymal disease. consultation with General surgery has been requested. Continue the patient on broad-spectrum IV antibiotics, follow results of urine culture and adjust antibiotics accordingly. Follow a.m. labs. Clear liquid diet, advanced as tolerated. REVIEW OF SYSTEMS CONSTITUTIONAL: Denies fevers, chills, or night sweats. No unintentional weight loss reported. NEUROLOGICAL: Denies headache, amaurosis fugax, motor weakness, sensory deficit, vertigo/spinning sensation, gait abnormalities, or tremors. ENT: No hearing loss, otalgia, otorrhea, rhinitis, rhinorrhea, hoarseness, or sore throat. CARDIOVASCULAR: Denies any exertional angina, dyspnea on exertion, orthopnea, paroxysmal nocturnal dyspnea, palpitations, life-threatening arrhythmias, claudication. PULMONARY: Denies any shortness of breath, cough, phlegm/sputum, hemoptysis, pleuritic chest pain. SLEEP: Denies morning headaches, daytime somnolence or napping. Denies difficulty falling asleep, staying asleep, waking from sleep. Denies knowledge of snoring. GASTROINTESTINAL: Abdominal pain, nausea. Denied any vomiting, melena, hematochezia, hematemesis GENITOURINARY: Denies urgency, nocturia, hematuria or incontinence (Storage/Irritative symptoms.) Low urinary stream, straining to void, urinary intermittency or hesitancy, splitting of the voiding stream, terminal dribbling. Positive for increased urinary frequency ENDOCRINOLOGIC: Denies polyuria, polydipsia, polyphagia or heat/cold intolerances. HEMATOLOGIC: Denies thrombophilia/previous clots, or coagulopathy/bleeding disorders. ONCOLOGIC: Denies personal history of malignancy. DERMATOLOGIC: Denies rashes or pruritus. PSYCHIATRIC: Denies any suicidal or homicidal ideation. Denies hallucinations. PHYSICAL EXAM GENERAL APPEARANCE: The patient is awake, alert, and oriented, in no acute cardiopulmonary distress. NEUROLOGICAL: Cranial nerves II-XII grossly intact. Motor is 5/5 in bilateral upper and lower extremities proximal to distal. No sensory deficits. HEENT: Face is symmetric. Pupils are equal and reactive. Extraocular movements are intact. NECK: Supple. No JVD. No thyromegaly. No submental, submandibular, pre- /postauricular, occipital or supraclavicular lymphadenopathy. CHEST: Normal chest expansion. No Telemetry. LUNGS: Absence of any rales, rhonchi or any wheezing. CARDIOVASCULAR: Regular. S1 and S2 normal. No appreciable rubs, murmurs or gallops. ABDOMEN: Soft, no guarding, no rebound. Mild tenderness in the suprapubic area : Deferred. No [place]. EXTREMITIES: Non-edematous and not cyanotic. No clubbing. Good capillary refill. SKIN: No skin breakdown. Vital Signs (last 8hr) Date Time Temp Pulse Resp B/P (MAP) Pulse Ox O2 Delivery O2 Flow Rate FiO2 03/25/25 04:00 98.4 67 17 117/68 97 Room Air LABS: Laboratory: Test 03/25/25 05:43 03/24/25 15:49 03/24/25 10:28 03/24/25 09:02 Range/Units White Blood Count 5.2 # 4.8-10.8 K/uL Red Blood Count 4.12 L 4.50-6.20 MIL/uL Hemoglobin 12.9 L 14.0-18.0 g/dL Hematocrit 37.7 L 42-54 % Mean Corpuscular Volume 91.5 79-99 fL Mean Corpuscular Hemoglobin 31.3 27.0-33.0 pg Mean Corpuscular Hemoglobin Concent 34.2 32.0-36.0 g/dL Red Cell Distribution Width 12.9 11.0-15.5 % Platelet Count 188 130-400 K/uL Mean Platelet Volume 9.2 7.5-10.5 fL Immature Granulocyte % (Auto) 0.2 0-1 % Neutrophils (%) (Auto) 70.4 40.0-77.0 % Lymphocytes (%) (Auto) 17.0 L 21.0-51.0 % Monocytes (%) (Auto) 11.0 3.0-13.0 % Eosinophils (%) (Auto) 1.2 0.0-8.0 % Basophils (%) (Auto) 0.2 0.0-5.0 % Neutrophils # (Auto) 3.6 1.8-7.7 K/uL Lymphocytes # (Auto) 0.9 L 1.0-4.8 K/uL Monocytes # (Auto) 0.6 0.1-1.0 K/uL Eosinophils # (Auto) 0.06 0.00-0.70 K/uL Basophils # (Auto) 0.01 0.00-0.20 K/uL Absolute Immature Granulocyte (auto 0.01 0-1 K/uL Nucleated Red Blood Cells 0.0 0.0-0.19 % Sodium Level 139 136-145 mmol/L Potassium Level 3.7 3.5-5.1 mmol/L Chloride Level 105 101-111 mmol/L Carbon Dioxide Level 29 21-32 mmol/L Blood Urea Nitrogen 15 7-18 mg/dL Creatinine 1.1 0.5-1.3 mg/dL Glomerular Filtration Rate Calc 70 >90 mL/min Random Glucose 96 70-105 mg/dL Total Calcium 8.6 8.5-10.1 mg/dL Whole Blood Glucose 125 H 70-110 MG/DL Urine Color YELLOW YELLOW Urine Appearance CLOUDY H CLEAR Urine pH 7.0 5.0-8.0 Urine Specific [place] 1.019 1.001-1.031 Urine Protein NEGATIVE NEGATIVE mg/dL Urine Glucose (UA) NEGATIVE NEGATIVE mg/dL Urine Ketones 10 H NEGATIVE mg/dL Urine Occult Blood NEGATIVE NEGATIVE Urine Nitrate 2+ H NEGATIVE Urine Bilirubin NEGATIVE NEGATIVE mg/dL Urine Urobilinogen 2.0 H 0.2-1.0 mg/dL Urine Leukocyte Esterase 25 H NEGATIVE Surinder/uL Urine RBC 2-5 H 0-1 /HPF Urine WBC 11-25 H 0-1 /HPF Urine Squamous Epithelial Cells RARE 0-2 /HPF Urine Amorphous Crystals (Auto) RARE None Seen /LPF Urine Bacteria MOD None Seen /HPF White Cell Morphology Comment See comments Hemoglobin A1c 5.7 4.0-6.0 % Estimated Average Glucose (eAG) 117 70-126 mg/dL Total Bilirubin 0.7 0.2-1.0 mg/dL Aspartate Amino Transf (AST/SGOT) 16 10-37 U/L Alanine Aminotransferase (ALT/SGPT) 18 12-78 U/L Alkaline Phosphatase 77 50-136 U/L Total Creatine Kinase 74 21-232 U/L Troponin I High Sensitivity 9 4-75 ng/L C-Reactive Protein, Quantitative 1.20 0.5-3.0 mg/L Total Protein 7.0 6.0-8.3 g/dL Albumin 3.8 3.5-5.0 g/dL Lipase 24 16-77 U/L Procalcitonin < 0.05 L 0.05-0.5 ng/mL Thyroid Stimulating Hormone (TSH) 0.30 L 0.36-3.74 uIU/mL Current Medications Medications (Trade) Dose Ordered Sig/Yue Route PRN Reason Start Time Stop Time Status Last Admin Dose Admin Amlodipine Besylate (NorvASC 5MG TAB) 5 mg DAILY PO 03/25/25 09:00 04/24/25 08:59 Famotidine (Pepcid 20mg Vial) 20 mg DAILY IV 03/24/25 21:00 04/23/25 20:59 03/25/25 08:55 20 MG Hydralazine HCl (APRESOLine 20MG INJ) 10 mg Q6H PRN IV ADMINISTER FOR SBP > 180 03/24/25 12:30 04/23/25 12:29 Magnesium Sulfate 50 ml @ 0 mls/hr PROTOCOL PRN IV hypomagnesemia 03/24/25 12:30 04/23/25 12:29 Morphine Sulfate (morPHINE 4MG SYG) 2 mg Q4H PRN IVP SEVERE PAIN (7-10) 03/24/25 12:30 03/31/25 12:29 Ondansetron HCl (zoFRAN 4MG INJ) 4 mg Q6H PRN IVP NAUSEA/VOMITING 03/24/25 12:30 04/23/25 12:29 Piperacillin Sod/ Tazobactam Sod (Zosyn 3.375gm+NS 50ml) 3.375 gm Q8H IVPB 03/24/25 12:30 03/24/25 12:17 DC Piperacillin Sod/ Tazobactam Sod (Zosyn 3.375gm+NS 50ml) 3.375 gm Q8H IVPB 03/24/25 17:00 04/03/25 16:59 03/25/25 08:55 3.375 GM Potassium Chloride 100 ml @ 100 mls/hr AD PRN IV POTASSIUM PROTOCOL 03/24/25 12:30 04/23/25 12:29 Potassium Chloride (K-Dur/Klor-Con 20meq) 20 meq AD PRN PO POTASSIUM PROTOCOL 03/24/25 12:30 04/23/25 12:29 03/25/25 06:30 20 MEQ Potassium Chloride (KCl 10% Elixir 20meq/15ml) 20 meq AD PRN PO POTASSIUM PROTOCOL 03/24/25 12:30 04/23/25 12:29 Sodium Chloride 1,000 ml @ 100 mls/hr Q10H IV 03/24/25 12:30 04/23/25 12:29 03/25/25 08:55 100 MLS/HR Sodium Chloride (NS 50ml) 50 ml AD IV 03/24/25 12:30 04/23/25 12:29 DIAGNOSTICS / RADIOLOGY: [ ] ASSESSMENT: Suspected UTI POA Constipation POA History of bowel obstruction POA Hypertension History of GERD PLAN: patient has been seen and examined, case discussed with the RN, no acute events overnight, remains admitted to the medical floor, comfortably bed, alert oriented x3, had a BM earlier this morning. blood pressure 117/68, afebrile, saturating normal on room air. CBC shows hemoglobin of 12.9, crit 37.7, with a white blood cell count of 5.2, platelet count of 188, sodium 139, x3 0.7, BUN 50, creatinine 1.1, UA positive for leukocyte esterase, WBC 11-25. Urine culture greater than [id number] CFU, identification and susceptibility in process, sent to reference lab. X-ray of the abdomen no acute abdominal findings, NPO now fecal material may reflect constipation. CT of the abdomen showing pro minent fluid-filled loops of small bowel within the right lower quadrant, measuring up to 3.7 cm, distended with the fecalized content, findings may reflect a partial small-bowel obstruction versus a small bowel ileus, mild bilateral perinephric fat stranding, may reflect renal parenchymal disease. consultation with General surgery has been requested. Continue the patient on broad-spectrum IV antibiotics, follow results of urine culture and adjust antibiotics accordingly. Follow a.m. labs. Clear liquid diet, advanced as tolerated. NEURO: Minimize central acting medications as possible. Fall Precautions. Well lighted room through the day and minimize interruptions through the night to prevent acute delirium. PULMONARY: Supplemental 02 as needed BiPAP as necessary, for respiratory distress Titrate Fio2 to keep Spo2 > or = 90% DuoNebs and CPT as needed IS hourly while awake for pulmonary hygiene prn Out of bed to chair as tolerated Maintain aspiration precautions at all times CARDIOVASCULAR: Follow hemodynamics. Vital signs per facility protocol GI & NUTRITION: Continue nutritional support Aspirations precautions Prokinetic agents and laxatives as needed KIDNEYS & ELECTROLYTES: Strict monitoring of intake and output Daily weights Avoid nephrotoxic agents Monitor electrolytes and replace as needed Goal urine output of 30mL/hr or 0.5mL/kg/hr Medications to be dosed according to renal function. Avoid contrast if possible ENDOCRINE: Maintain blood glucose between 100-180 at all times. Insulin sliding scale for blood glucose management Hypoglycemia and hyperglycemia protocol in place INFECTIOUS DISEASE: Trend temperature, WBC and procalcitonin level Follow cultures, deescalate antibiotics as soon as possible. Panculture if new onset fever HEMATOLOGY & COAGULATION: Monitor H&H. Keep Hgb > 7 Transfuse 1 unit of PRBC for Hgb < 7 Transfuse 1 pack of platelets of platelets < 20, 000 Watch for any signs and symptoms of bleeding SKIN: Pressure ulcer prevention per facility protocol Specialty mattress as needed ORTHO/REHAB Continue PT/OT PRN: MEDICATIONS Tylenol 650 mg po every 4 hrs for fever zofran 4 mg IV every 6 hrs for n/v Hydralazine 5 mg IV every 4 hrs systolic pressure > 160 bowel regiment: lactulose 20 gm PO BID PRN constipation Supportive measures: Continue GI and DVT prophylaxis Disposition: Pending improvement in clinical condition All questions answered time spent: > 35 min KYLE RODGERS MD Mar 25, 2025 09:13
[2025-03-25] MEDS: LACTATED RINGERS 1000ML 1,000 ML IV SCH (09:30)
[2025-03-25] MEDS: MAGNESIUM CITRATE 296 ML SOLUTION PO ONE (11:09)
--- NOTE | 2025-03-25 11:49 | CONS ---
GENERAL SURGERY CONSULTATION NOTE DATE OF CONSULTATION: Mar 25, 2025 TIME OF CONSULTATION: 11:49 CONSULTING SERVICE: Osito Guevara MD REQUESTING PHYSICAIN: [ ] REASON FOR CONSULTATION: [ ] HISTORY OF PRESENT ILLNESS: [ ] PAST MEDICAL HISTORY: [ ] PAST SURGICAL HISTORY: [ ] Prostatectomy Right inguinal hernia repair FAMILY HISTORY: [ ] SOCIAL HISTORY: [ ] Current Medications Medications (Trade) Dose Ordered Sig/Yue Route Start Time Stop Time Status Last Admin Dose Admin Amlodipine Besylate (NorvASC 5MG TAB) 5 mg DAILY PO 03/25/25 09:00 04/24/25 08:59 Famotidine (Pepcid 20mg Vial) 20 mg DAILY IV 03/24/25 21:00 04/23/25 20:59 03/25/25 08:55 20 MG Lactated Ringer's 1,000 ml @ 75 mls/hr [id number] IV 03/25/25 09:30 04/24/25 09:29 Piperacillin Sod/ Tazobactam Sod (Zosyn 3.375gm+NS 50ml) 3.375 gm Q8H IVPB 03/24/25 12:30 03/24/25 12:17 DC Piperacillin Sod/ Tazobactam Sod (Zosyn 3.375gm+NS 50ml) 3.375 gm Q8H IVPB 03/24/25 17:00 04/03/25 16:59 03/25/25 08:55 3.375 GM Sodium Chloride 1,000 ml @ 100 mls/hr Q10H IV 03/24/25 12:30 03/25/25 09:14 DC 03/25/25 08:55 100 MLS/HR Sodium Chloride (NS 50ml) 50 ml AD IV 03/24/25 12:30 03/25/25 09:16 DC Allergies: Coded Allergies: No Known Drug Allergies (Unverified Allergy, Unknown, 01/11/21) REVIEW OF SYSTEMS: STAFFING COORDINATOR: [Denies headaches or blurring of vision.] RESP: [No cough, chest pain or SOB.] CVS: [No palpitaions.] GI: [abdominal pain with nausea and vomiting, no diarrhea or constipation.] FRANCISCO: [No dysuria or hematuria.] Musculoskeletal: [No swelling or joint pain.] BACK: [No pain or swelling.] All other systems are reviewed and essentially negative pertinent positives in HPI. PHYSICAL EXAMINATION: GENERAL: [Patient is lying comfortably in bed, not in any obvious distress.] HEAD: [Normal with no signs of head trauma.] EYES: [Not pale not jaundiced afebrile to touch.] ENT: [ Normal.] NECK: [Supple,no tenderness,no lymphadenopathy,no masses,no thyromegaly ,no bruits, no JVD.] LUNGS: [Clear breath sounds bilaterally. No wheezes, rales, or rhonchi.] HEART: [Regular rate and rhythm. Normal S1 and S2, without murmurs, rub or gallop.] VASC: [No edema. Peripheral pulses normal and equal in all extremities.] ABD: [Bowel sounds present,soft, RUQ tender, no masses, no organomegaly.] : [Normal, no suprapubic tenderness.] LYMPH: [No lymphadenopathy noted.] EXT: [ Warm soft, non tender.] SKIN: [ No rashes or lesions.] NEURO: [ Awake Alert and oriented x3.] Vital Signs (last 8hr) Date Time Temp Pulse Resp B/P (MAP) Pulse Ox O2 Delivery O2 Flow Rate FiO2 03/25/25 08:10 96 Room Air* 0 21 03/25/25 08:00 97.7 61 16 116/76 96 Room Air 21 03/25/25 04:00 98.4 67 17 117/68 97 Room Air LABORATORY: [ ] Hematology Labs: Test 03/25/25 05:43 03/24/25 09:02 Range/Units White Blood Count 5.2 # 4.8-10.8 K/uL Red Blood Count 4.12 L 4.50-6.20 MIL/uL Hemoglobin 12.9 L 14.0-18.0 g/dL Hematocrit 37.7 L 42-54 % Mean Corpuscular Volume 91.5 79-99 fL Mean Corpuscular Hemoglobin 31.3 27.0-33.0 pg Mean Corpuscular Hemoglobin Concent 34.2 32.0-36.0 g/dL Red Cell Distribution Width 12.9 11.0-15.5 % Platelet Count 188 130-400 K/uL Mean Platelet Volume 9.2 7.5-10.5 fL Immature Granulocyte % (Auto) 0.2 0-1 % Neutrophils (%) (Auto) 70.4 40.0-77.0 % Lymphocytes (%) (Auto) 17.0 L 21.0-51.0 % Monocytes (%) (Auto) 11.0 3.0-13.0 % Eosinophils (%) (Auto) 1.2 0.0-8.0 % Basophils (%) (Auto) 0.2 0.0-5.0 % Neutrophils # (Auto) 3.6 1.8-7.7 K/uL Lymphocytes # (Auto) 0.9 L 1.0-4.8 K/uL Monocytes # (Auto) 0.6 0.1-1.0 K/uL Eosinophils # (Auto) 0.06 0.00-0.70 K/uL Basophils # (Auto) 0.01 0.00-0.20 K/uL Absolute Immature Granulocyte (auto 0.01 0-1 K/uL Nucleated Red Blood Cells 0.0 0.0-0.19 % White Cell Morphology Comment See comments Chemistry Labs: Test 03/25/25 05:43 03/24/25 15:49 03/24/25 09:02 Range/Units Sodium Level 139 136-145 mmol/L Potassium Level 3.7 3.5-5.1 mmol/L Chloride Level 105 101-111 mmol/L Carbon Dioxide Level 29 21-32 mmol/L Blood Urea Nitrogen 15 7-18 mg/dL Creatinine 1.1 0.5-1.3 mg/dL Glomerular Filtration Rate Calc 70 >90 mL/min Random Glucose 96 70-105 mg/dL Total Calcium 8.6 8.5-10.1 mg/dL Whole Blood Glucose 125 H 70-110 MG/DL Hemoglobin A1c 5.7 4.0-6.0 % Estimated Average Glucose (eAG) 117 70-126 mg/dL Total Bilirubin 0.7 0.2-1.0 mg/dL Aspartate Amino Transf (AST/SGOT) 16 10-37 U/L Alanine Aminotransferase (ALT/SGPT) 18 12-78 U/L Alkaline Phosphatase 77 50-136 U/L Total Creatine Kinase 74 21-232 U/L Troponin I High Sensitivity 9 4-75 ng/L C-Reactive Protein, Quantitative 1.20 0.5-3.0 mg/L Total Protein 7.0 6.0-8.3 g/dL Albumin 3.8 3.5-5.0 g/dL Lipase 24 16-77 U/L Procalcitonin < 0.05 L 0.05-0.5 ng/mL Thyroid Stimulating Hormone (TSH) 0.30 L 0.36-3.74 uIU/mL DIAGNOSTICS / RADIOLOGY: [Copy/Paste Echos/Imaging Report here] ASSESSMENT: [] Abdominal pain Constipation Small umbilical hernia PLAN: Rehydrate Mag citrate Clears advance as tolerated thoughts OSITO GUEVARA MD Mar 25, 2025 11:49
[2025-03-26] VITALS (8 sets, daily range): BP systolic 107–134; BP diastolic 43–79; PULSE 57–69; RESP 16–19; TEMP 97.7–98; O2SAT 95–98
[2025-03-26 05:47] LABS: NUCLEATED RED BLOOD CELLS 0.0 % (0.0-0.19); PLATELET COUNT (AUTO) 184.0 K/uL (130-400); RED BLOOD CELL COUNT(AUTO) 4.37 MIL/uL (4.50-6.20); RED CELL DISTRIBUTION WIDTH 12.6 % (11.0-15.5); WHITE BLOOD COUNT (AUTO) 4.2 K/uL (4.8-10.8)
[2025-03-26 06:05] LABS: ASPARTATE AMINOTRANSFERASE 18.0 U/L (10-37); CREATININE 0.9 mg/dL (0.5-1.3); GLOMERULAR FILTR. RATE CALC 89.0 mL/min (>90); GLUCOSE,RANDOM 99.0 mg/dL (70-105); SODIUM SERUM 135.0 mmol/L (136-145); TOTAL PROTEIN, SERUM 6.0 g/dL (6.0-8.3); UREA NITROGEN, BLOOD 16.0 mg/dL (7-18)
--- NOTE | 2025-03-26 11:40 | PN ---
[facility] PROGRESS NOTE Date of Service: Mar 26, 2025 Time of Service: 11:39 SUBJECTIVE: 03/25 patient has been seen and examined, case discussed with the RN, no acute events overnight, remains admitted to the medical floor, comfortably bed, alert oriented x3, had a BM earlier this morning. blood pressure 117/68, afebrile, saturating normal on room air. CBC shows hemoglobin of 12.9, crit 37.7, with a white blood cell count of 5.2, platelet count of 188, sodium 139, x3 0.7, BUN 50, creatinine 1.1, UA positive for leukocyte esterase, WBC 11-25. Urine culture greater than [id number] CFU, identification and susceptibility in process, sent to reference lab. X-ray of the abdomen no acute abdominal findings, NPO now fecal material may reflect constipation. CT of the abdomen showing prominent fluid-filled loops of small bowel within the right lower quadrant, measuring up to 3.7 cm, distended with the fecalized content, findings may reflect a partial small-bowel obstruction versus a small bowel ileus, mild bilateral perinephric fat stranding, may reflect renal parenchymal disease. consultation with General surgery has been requested. Continue the patient on broad-spectrum IV antibiotics, follow results of urine culture and adjust antibiotics accordingly. Follow a.m. labs. Clear liquid diet, advanced as tolerated. 03/26 patient is seen and examined at bedside, discussed with the RN, no acute events overnight, patient is started on heart healthy diet, however developed lower abdominal discomfort. During my visit he is hemodynamically stable, afebrile, saturating normal on room air. Results of urine culture positive for Klebsiella pneumoniae sensitive to multiple antibiotics. We will switch antibiotics to Rocephin 1 g IV daily. Explained to the patient that the low abdominal discomfort my visit secondary to cystitis. We will start the patient on Pyridium 100 mg p.o. q.8 hours p.r.n.. Change diet to GI soft diet. Follow a.m. labs. Patient agreed and understood the information provided. REVIEW OF SYSTEMS CONSTITUTIONAL: Denies fevers, chills, or night sweats. No unintentional weight loss reported. NEUROLOGICAL: Denies headache, amaurosis fugax, motor weakness, sensory deficit, vertigo/spinning sensation, gait abnormalities, or tremors. ENT: No hearing loss, otalgia, otorrhea, rhinitis, rhinorrhea, hoarseness, or sore throat. CARDIOVASCULAR: Denies any exertional angina, dyspnea on exertion, orthopnea, paroxysmal nocturnal dyspnea, palpitations, life-threatening arrhythmias, claudication. PULMONARY: Denies any shortness of breath, cough, phlegm/sputum, hemoptysis, pleuritic chest pain. SLEEP: Denies morning headaches, daytime somnolence or napping. Denies difficulty falling asleep, staying asleep, waking from sleep. Denies knowledge of snoring. GASTROINTESTINAL: Abdominal pain, nausea. Denied any vomiting, melena, hematochezia, hematemesis GENITOURINARY: Denies urgency, nocturia, hematuria or incontinence (Storage/Irritative symptoms.) Low urinary stream, straining to void, urinary intermittency or hesitancy, splitting of the voiding stream, terminal dribbling. Positive for increased urinary frequency ENDOCRINOLOGIC: Denies polyuria, polydipsia, polyphagia or heat/cold intolerances. HEMATOLOGIC: Denies thrombophilia/previous clots, or coagulopathy/bleeding disorders. ONCOLOGIC: Denies personal history of malignancy. DERMATOLOGIC: Denies rashes or pruritus. PSYCHIATRIC: Denies any suicidal or homicidal ideation. Denies hallucinations. PHYSICAL EXAM GENERAL APPEARANCE: The patient is awake, alert, and oriented, in no acute cardiopulmonary distress. NEUROLOGICAL: Cranial nerves II-XII grossly intact. Motor is 5/5 in bilateral upper and lower extremities proximal to distal. No sensory deficits. HEENT: Face is symmetric. Pupils are equal and reactive. Extraocular movements are intact. NECK: Supple. No JVD. No thyromegaly. No submental, submandibular, pre- /postauricular, occipital or supraclavicular lymphadenopathy. CHEST: Normal chest expansion. No Telemetry. LUNGS: Absence of any rales, rhonchi or any wheezing. CARDIOVASCULAR: Regular. S1 and S2 normal. No appreciable rubs, murmurs or gallops. ABDOMEN: Soft, no guarding, no rebound. Mild tenderness in the suprapubic area : Deferred. No Grove. EXTREMITIES: Non-edematous and not cyanotic. No clubbing. Good capillary refill. SKIN: No skin breakdown. Vital Signs (last 8hr) Date Time Temp Pulse Resp B/P (MAP) Pulse Ox O2 Delivery O2 Flow Rate FiO2 11/9/25 08:00 95 Room Air* 0 21 03/26/25 08:00 98.1 61 16 107/43 95 Room Air 21 03/26/25 04:00 98.1 68 17 114/70 98 Room Air LABS: Laboratory: Test 03/26/25 05:35 03/25/25 05:43 03/24/25 15:49 Range/Units White Blood Count 4.2 L 4.8-10.8 K/uL Red Blood Count 4.37 L 4.50-6.20 MIL/uL Hemoglobin 13.5 L 14.0-18.0 g/dL Hematocrit 40.4 L 42-54 % Mean Corpuscular Volume 92.4 79-99 fL Mean Corpuscular Hemoglobin 30.9 27.0-33.0 pg Mean Corpuscular Hemoglobin Concent 33.4 32.0-36.0 g/dL Red Cell Distribution Width 12.6 11.0-15.5 % Platelet Count 184 130-400 K/uL Mean Platelet Volume 8.9 7.5-10.5 fL Nucleated Red Blood Cells 0.0 0.0-0.19 % Sodium Level 135 L 136-145 mmol/L Potassium Level 4.3 3.5-5.1 mmol/L Chloride Level 105 101-111 mmol/L Carbon Dioxide Level 26 21-32 mmol/L Blood Urea Nitrogen 16 7-18 mg/dL Creatinine 0.9 0.5-1.3 mg/dL Glomerular Filtration Rate Calc 89 >90 mL/min Random Glucose 99 70-105 mg/dL Total Calcium 8.5 8.5-10.1 mg/dL Magnesium Level 2.00 1.80-2.40 mg/dL Total Bilirubin 1.1 H 0.2-1.0 mg/dL Aspartate Amino Transf (AST/SGOT) 18 10-37 U/L Alanine Aminotransferase (ALT/SGPT) 16 12-78 U/L Alkaline Phosphatase 66 50-136 U/L Total Protein 6.0 6.0-8.3 g/dL Albumin 3.1 L 3.5-5.0 g/dL Immature Granulocyte % (Auto) 0.2 0-1 % Neutrophils (%) (Auto) 70.4 40.0-77.0 % Lymphocytes (%) (Auto) 17.0 L 21.0-51.0 % Monocytes (%) (Auto) 11.0 3.0-13.0 % Eosinophils (%) (Auto) 1.2 0.0-8.0 % Basophils (%) (Auto) 0.2 0.0-5.0 % Neutrophils # (Auto) 3.6 1.8-7.7 K/uL Lymphocytes # (Auto) 0.9 L 1.0-4.8 K/uL Monocytes # (Auto) 0.6 0.1-1.0 K/uL Eosinophils # (Auto) 0.06 0.00-0.70 K/uL Basophils # (Auto) 0.01 0.00-0.20 K/uL Absolute Immature Granulocyte (auto 0.01 0-1 K/uL Whole Blood Glucose 125 H 70-110 MG/DL Current Medications Medications (Trade) Dose Ordered Sig/Yue Route PRN Reason Start Time Stop Time Status Last Admin Dose Admin Amlodipine Besylate (NorvASC 5MG TAB) 5 mg DAILY PO 03/25/25 09:00 04/24/25 08:59 Famotidine (Pepcid 20mg Vial) 20 mg DAILY IV 03/24/25 21:00 04/23/25 20:59 03/26/25 09:13 20 MG Hydralazine HCl (APRESOLine 20MG INJ) 5 mg Q6H PRN IV ADMINISTER FOR SBP > 180 03/25/25 12:30 04/24/25 12:29 Hydralazine HCl (APRESOLine 20MG INJ) 10 mg Q6H PRN IV ADMINISTER FOR SBP > 180 03/24/25 12:30 03/25/25 09:14 DC Lactated Ringer's 1,000 ml @ 75 mls/hr [id number] IV 03/25/25 09:30 04/24/25 09:29 03/26/25 09:17 75 MLS/HR Magnesium Sulfate 50 ml @ 0 mls/hr PROTOCOL PRN IV hypomagnesemia 03/24/25 12:30 04/23/25 12:29 Morphine Sulfate (morPHINE 4MG SYG) 2 mg Q4H PRN IVP SEVERE PAIN (7-10) 03/24/25 12:30 03/25/25 09:14 DC Ondansetron HCl (zoFRAN 4MG INJ) 4 mg Q6H PRN IVP NAUSEA/VOMITING 03/24/25 12:30 04/23/25 12:29 Phenazopyridine HCl (PYRIdium HCL 200 MG TAB) 200 mg Q8H PRN PO DYSURIA 03/26/25 10:30 04/25/25 10:29 Piperacillin Sod/ Tazobactam Sod (Zosyn 3.375gm+NS 50ml) 3.375 gm Q8H IVPB 03/24/25 12:30 03/24/25 12:17 DC Piperacillin Sod/ Tazobactam Sod (Zosyn 3.375gm+NS 50ml) 3.375 gm Q8H IVPB 03/24/25 17:00 04/03/25 16:59 03/26/25 09:13 3.375 GM Potassium Chloride 100 ml @ 100 mls/hr AD PRN IV POTASSIUM PROTOCOL 03/24/25 12:30 04/23/25 12:29 Potassium Chloride (K-Dur/Klor-Con 20meq) 20 meq AD PRN PO POTASSIUM PROTOCOL 03/24/25 12:30 04/23/25 12:29 03/26/25 00:46 20 MEQ Potassium Chloride (KCl 10% Elixir 20meq/15ml) 20 meq AD PRN PO POTASSIUM PROTOCOL 03/24/25 12:30 04/23/25 12:29 Sodium Chloride 1,000 ml @ 100 mls/hr Q10H IV 03/24/25 12:30 03/25/25 09:14 DC 03/25/25 08:55 100 MLS/HR Sodium Chloride (NS 50ml) 50 ml AD IV 03/24/25 12:30 03/25/25 09:16 DC DIAGNOSTICS / RADIOLOGY: [ ] ASSESSMENT: Suspected UTI POA Constipation POA History of bowel obstruction POA Hypertension History of GERD PLAN: patient is seen and examined at bedside, discussed with the RN, no acute events overnight, patient is started on heart healthy diet, however developed lower abdominal discomfort. During my visit he is hemodynamically stable, afebrile, saturating normal on room air. Results of urine culture positive for Klebsiella pneumoniae sensitive to multiple antibiotics. We will switch antibiotics to Rocephin 1 g IV daily. Explained to the patient that the low abdominal discomfort my visit secondary to cystitis. We will start the patient on Pyridium 100 mg p.o. q.8 hours p.r.n.. Change diet to GI soft diet. Follow a.m. labs. Patient agreed and understood the information provided. NEURO: Minimize central acting medications as possible. Fall Precautions. Well lighted room through the day and minimize interruptions through the night to prevent acute delirium. PULMONARY: Supplemental 02 as needed BiPAP as necessary, for respiratory distress Titrate Fio2 to keep Spo2 > or = 90% DuoNebs and CPT as needed IS hourly while awake for pulmonary hygiene prn Out of bed to chair as tolerated Maintain aspiration precautions at all times CARDIOVASCULAR: Follow hemodynamics. Vital signs per facility protocol GI & NUTRITION: Continue nutritional support Aspirations precautions Prokinetic agents and laxatives as needed KIDNEYS & ELECTROLYTES: Strict monitoring of intake and output Daily weights Avoid nephrotoxic agents Monitor electrolytes and replace as needed Goal urine output of 30mL/hr or 0.5mL/kg/hr Medications to be dosed according to renal function. Avoid contrast if possible ENDOCRINE: Maintain blood glucose between 100-180 at all times. Insulin sliding scale for blood glucose management Hypoglycemia and hyperglycemia protocol in place INFECTIOUS DISEASE: Trend temperature, WBC and procalcitonin level Follow cultures, deescalate antibiotics as soon as possible. Panculture if new onset fever HEMATOLOGY & COAGULATION: Monitor H&H. Keep Hgb > 7 Transfuse 1 unit of PRBC for Hgb < 7 Transfuse 1 pack of platelets of platelets < 20, 000 Watch for any signs and symptoms of bleeding SKIN: Pressure ulcer prevention per facility protocol Specialty mattress as needed ORTHO/REHAB Continue PT/OT PRN: MEDICATIONS Tylenol 650 mg po every 4 hrs for fever zofran 4 mg IV every 6 hrs for n/v Hydralazine 5 mg IV every 4 hrs systolic pressure > 160 bowel regiment: lactulose 20 gm PO BID PRN constipation Supportive measures: Continue GI and DVT prophylaxis Disposition: Pending improvement in clinical condition All questions answered time spent: > 35 min KYLE RODGERS MD Mar 26, 2025 11:40
[2025-03-26] MEDS: PHENAZOpyridine HCL 200 MG TAB 200 MG TABLET PO PRN (12:26)
--- NOTE | 2025-03-26 12:36 | PN ---
GENERAL SURGERY PROGRESS NOTE DATE OF SERVICE: Mar 26, 2025 TIME OF SERVICE: 12:35 Doing well Had multiple bowel movements PROBLEM LISTS: [ ] INTERVAL HISTORY: [ ] PHYSICAL EXAMINATION: GENERAL: [Patient is lying comfortably in bed, not in any obvious distress.] HEAD: [Normal with no signs of head trauma.] EYES: [Not pale not jaundiced afebrile to touch.] ENT: [ Normal.] NECK: [Supple,no tenderness,no lymphadenopathy,no masses,no thyromegaly ,no bruits, no JVD.] LUNGS: [Clear breath sounds bilaterally. No wheezes, rales, or rhonchi.] HEART: [Regular rate and rhythm. Normal S1 and S2, without murmurs, rub or gallop.] VASC: [No edema. Peripheral pulses normal and equal in all extremities.] ABD: [Benign y.] : [Normal, no suprapubic tenderness.] LYMPH: [No lymphadenopathy noted.] EXT: [ Warm soft, non tender.] SKIN: [ No rashes or lesions.] NEURO: [ Awake Alert and oriented x3.] LABORATORY: [ ] Hematology Labs: Test 03/26/25 05:35 03/25/25 05:43 Range/Units White Blood Count 4.2 L 4.8-10.8 K/uL Red Blood Count 4.37 L 4.50-6.20 MIL/uL Hemoglobin 13.5 L 14.0-18.0 g/dL Hematocrit 40.4 L 42-54 % Mean Corpuscular Volume 92.4 79-99 fL Mean Corpuscular Hemoglobin 30.9 27.0-33.0 pg Mean Corpuscular Hemoglobin Concent 33.4 32.0-36.0 g/dL Red Cell Distribution Width 12.6 11.0-15.5 % Platelet Count 184 130-400 K/uL Mean Platelet Volume 8.9 7.5-10.5 fL Nucleated Red Blood Cells 0.0 0.0-0.19 % Immature Granulocyte % (Auto) 0.2 0-1 % Neutrophils (%) (Auto) 70.4 40.0-77.0 % Lymphocytes (%) (Auto) 17.0 L 21.0-51.0 % Monocytes (%) (Auto) 11.0 3.0-13.0 % Eosinophils (%) (Auto) 1.2 0.0-8.0 % Basophils (%) (Auto) 0.2 0.0-5.0 % Neutrophils # (Auto) 3.6 1.8-7.7 K/uL Lymphocytes # (Auto) 0.9 L 1.0-4.8 K/uL Monocytes # (Auto) 0.6 0.1-1.0 K/uL Eosinophils # (Auto) 0.06 0.00-0.70 K/uL Basophils # (Auto) 0.01 0.00-0.20 K/uL Absolute Immature Granulocyte (auto 0.01 0-1 K/uL Chemistry Labs: Test 03/26/25 05:35 03/24/25 15:49 Range/Units Sodium Level 135 L 136-145 mmol/L Potassium Level 4.3 3.5-5.1 mmol/L Chloride Level 105 101-111 mmol/L Carbon Dioxide Level 26 21-32 mmol/L Blood Urea Nitrogen 16 7-18 mg/dL Creatinine 0.9 0.5-1.3 mg/dL Glomerular Filtration Rate Calc 89 >90 mL/min Random Glucose 99 70-105 mg/dL Total Calcium 8.5 8.5-10.1 mg/dL Magnesium Level 2.00 1.80-2.40 mg/dL Total Bilirubin 1.1 H 0.2-1.0 mg/dL Aspartate Amino Transf (AST/SGOT) 18 10-37 U/L Alanine Aminotransferase (ALT/SGPT) 16 12-78 U/L Alkaline Phosphatase 66 50-136 U/L Total Protein 6.0 6.0-8.3 g/dL Albumin 3.1 L 3.5-5.0 g/dL Whole Blood Glucose 125 H 70-110 MG/DL DIAGNOSTICS / RADIOLOGY: [Copy/Paste Echos/Imaging Report here] ASSESSMENT: Constipation Resolved PLAN: Diet Nothing surgical OSITO MORALES MD Mar 26, 2025 12:36
[2025-03-27 04:17] VITALS: BP 124/68; PULSE 66; RESP 18; TEMP 98.1
[2025-03-27 07:47] VITALS: BP 121/82; PULSE 61; RESP 19; TEMP 97.8
[2025-03-27] MEDS ORDERED: PHEN-847 PO (10:03)
[2025-03-27] MEDS ORDERED: AMLO5TAB4 PO (10:03)
[2025-03-27] MEDS ORDERED: CEFD300C3 PO (10:03)
[2025-03-27 10:07] VITALS: O2SAT 98
--- NOTE | 2025-03-28 09:12 | DS ---
Discharge Summary Hospital Course Summary: Date of service March 27, 2025 The patient initially admitted to the hospital March 24, 2025 with the following history of the present illness: 75-year-old male with past medical history of GERD, history of prostate cancer who presented to the hospital secondary to abdominal pain. The patient states for the past three days he has noted that he has been having pain in the suprapubic area. He is able to urinate at home. Denies any fever, chills but feels nauseated without any episodes of vomiting. Denied any melena, hematochezia, hematemesis. He has not been able to eat due to feeling nauseated. Denied any chest pain, shortness breath, falls, syncopal episode. Denied any hematuria. He has had a previous urological procedure for his prostate in the past. Patient's labs showed white count of 7.3, hemoglobin was 15.0, platelet count was 220 K sodium was 139, potassium was 4.1, creatinine was 1.0, bicarb was 33, BUN was 20, LFTs were unremarkable, troponin was negative x1 Patient underwent a abdominal x-ray which showed no acute findings. There was findings concerning for constipation. HOSPITAL COURSE 03/25 patient has been seen and examined, case discussed with the RN, no acute events overnight, remains admitted to the medical floor, comfortably bed, alert oriented x3, had a BM earlier this morning. blood pressure 117/68, afebrile, saturating normal on room air. CBC shows hemoglobin of 12.9, crit 37.7, with a white blood cell count of 5.2, platelet count of 188, sodium 139, x3 0.7, BUN 50, creatinine 1.1, UA positive for leukocyte esterase, WBC 11-25. Urine culture greater than 213900 CFU, identification and susceptibility in process, sent to reference lab. X-ray of the abdomen no acute abdominal findings, NPO now fecal material may reflect constipation. CT of the abdomen showing prom inent fluid-filled loops of small bowel within the right lower quadrant, measuring up to 3.7 cm, distended with the fecalized content, findings may reflect a partial small-bowel obstruction versus a small bowel ileus, mild bilateral perinephric fat stranding, may reflect renal parenchymal disease. consultation with General surgery has been requested. Continue the patient on broad-spectrum IV antibiotics, follow results of urine culture and adjust antibiotics accordingly. Follow a.m. labs. Clear liquid diet, advanced as tolerated. 03/26 patient is seen and examined at bedside, discussed with the RN, no acute events overnight, patient is started on heart healthy diet, however developed lower abdominal discomfort. During my visit he is hemodynamically stable, afebrile, saturating normal on room air. Results of urine culture positive for Klebsiella pneumoniae sensitive to multiple antibiotics. We will switch antibiotics to Rocephin 1 g IV daily. Explained to the patient that the low abdominal discomfort my visit secondary to cystitis. We will start the patient on Pyridium 100 mg p.o. q.8 hours p.r.n.. Change diet to GI soft diet. Follow a.m. labs. Patient agreed and understood the information provided. 03/27 the patient remains admitted to medical floor, seen and examined at bedside, hemodynamically stable, afebrile, saturating normal on room air, he is alert oriented x3, tolerating diet, no nausea, no vomiting, no abdominal discomfort, no diarrhea, no constipation, having good bowel movement. Lower abdominal discomfort resolved after started the patient on Pyridium. Phlegm for the patient to be discharged home. PHYSICAL EXAM GENERAL APPEARANCE: The patient is awake, alert, and oriented, in no acute cardiopulmonary distress. NEUROLOGICAL: Cranial nerves II-XII grossly intact. Motor is 5/5 in bilateral upper and lower extremities proximal to distal. No sensory deficits. HEENT: Face is symmetric. Pupils are equal and reactive. Extraocular movements are intact. NECK: Supple. No JVD. No thyromegaly. No submental, submandibular, pre- /postauricular, occipital or supraclavicular lymphadenopathy. CHEST: Normal chest expansion. No Telemetry. LUNGS: Absence of any rales, rhonchi or any wheezing. CARDIOVASCULAR: Regular. S1 and S2 normal. No appreciable rubs, murmurs or gallops. ABDOMEN: Soft, no guarding, no rebound. Mild tenderness in the suprapubic area : Deferred. No [place]. EXTREMITIES: Non-edematous and not cyanotic. No clubbing. Good capillary refill. SKIN: No skin breakdown. [employer]ding [employer]ater(s): General surgery services Assessment/Plan: Final diagnosis Klebsiella pneumoniae UTI, POA Partial small-bowel obstruction versus ileus, resolved, POA History of bowel obstruction POA Hypertension History of GERD Discharge Instructions: The patient to follow with his primary care physician as an outpatient. Advised to return to the hospital if condition changes. Patient agreed with plan and understood the information provided. Home Medications: Active Scripts Phenazopyridine HCl (Pyridium) 200 Mg Tab, 1 TAB PO TID for urinary discomfort for 3 Days, #9 TAB 0 Refills after food Prov:KYLE RODGERS MD 03/27/25 Cefdinir (Cefdinir) 300 Mg Capsule, 1 CAP PO BID for 5 Days, #10 CAP 0 Refills Prov:KYLE RODGERS MD 03/27/25 Amlodipine Besylate (Norvasc 5Mg Tab) 5 Mg Tablet, 5 MG PO DAILY for 30 Days, #30 TAB 2 Refills Prov:KYLE RODGERS MD 03/27/25 Omeprazole (Omeprazole) 40 Mg Capsule.dr, 1 CAP PO DAILY for 30 Days, #30 CAP 0 Refills Prov:KEVEN PERDUE 09/05/24 Reported Medications Meloxicam (Meloxicam) 7.5 Mg Tablet, 7.5 MG PO DAILY PRN for PAIN, TAB 03/24/25 Meclizine HCl (Medi-Meclizine) 25 Mg Tablet, 25 MG PO TID, TAB 03/24/25 Discontinued Reported Medications Tamsulosin HCl (Flomax) 0.4 Mg Cap.er.24h, 0.4 MG PO DAILY, CAPSULE. 01/12/21 Discontinued Scripts Ondansetron (Ondansetron Odt) 4 Mg Tab.rapdis, 4 MG PO Q6HPRN PRN for nausea, #16 TAB 0 Refills Prov:KEVEN PERDUE 09/05/24 Sucralfate (Carafate) 1 Gram Tablet, 1 GM PO ACHS for 10 Days, #40 TAB Prov:KEVEN PERDUEP 09/05/24 Metronidazole (Flagyl) 375 Mg Capsule, 500 MG PO BID for 10 Days, #20 CAP Prov:ANNETTE HOGUE MD 08/07/24 Ciprofloxacin HCl (Cipro) 250 Mg Tablet, 500 MG PO BID for 10 Days, #20 TAB Prov:ANNETTE HOGUE MD 08/07/24 Pantoprazole Sodium (Protonix) 40 Mg Tablet.dr, 40 MG PO DAILY, #30 TAB 0 Refills Prov:LAURY SMITH RESTORATIVE COORDINATOR 10/31/22 Amoxicillin/Potassium Clav (Amox Tr-K Clv 500-125 mg Tab) 1 Each Tablet, 1 EACH PO Q12H for 7 Days, #14 TAB Prov:LOIDA NGO CROP PICKER 10/06/22 Mupirocin (Mupirocin Ointment) 22 Gm Oint, 1 APPL TP BID for 5 Days, #30 G Prov:JULIETA RIOS 09/09/22 Cephalexin (Cephalexin) 500 Mg Capsule, 500 MG PO TID for 10 Days, #30 CAP Prov:JULIETA RIOS 09/09/22 Phenazopyridine HCl (Pyridium) 100 Mg Tab, 100 MG PO TID, #15 TAB Prov:EH COLBERT MD 02/16/22 Cephalexin Monohydrate (Keflex) 500 Mg Cap, 500 MG PO TID, #30 CAP Prov:EH COLBERT MD 02/16/22 Sucralfate (Carafate) 1 Gm Tablet, 1 GM PO QIDP PRN for Stomach Pain, #60 TAB 1 Refill Prov:DENISE MTZ MD 04/27/21 Cephalexin Monohydrate (Keflex) 500 Mg Cap, 500 MG PO TID PRN for uti, #15 CAP Prov:DIAMANTE CARMONA MD 01/13/21 Tramadol HCl/Acetaminophen (Ultracet Tablet) 1 Each Tablet, 1 EACH PO QID, #30 TAB Prov:ROBERTH ZAVALA 11/11/20 Docusate Sodium (Dok) 100 Mg Capsule, 100 MG PO DAILY for 30 Days, #30 CAP Prov:BERE GRACE 09/16/19 Time spent arranging discharge: 31-60 minutes KYLE RODGERS MD Mar 28, 2025 09:12
== END 2025-03-27 12:33 | disposition home or self-care (01) | DRG 690 ==
LOC: EDH 08:52 → EDHIP 12:05 → 4AH 13:25
PROVIDERS: ADMIT Internal Medicine; ATTEND Internal Medicine
DX: N30.90 Cystitis, unspecified without hematuria (principal); K56.7 Ileus, unspecified; B96.1 Klebsiella pneumoniae [K. pneumoniae] as the cause of diseases classified elsewhere; I10 Essential (primary) hypertension; K42.9 Umbilical hernia without obstruction or gangrene; K21.9 Gastro-esophageal reflux disease without esophagitis; K59.00 Constipation, unspecified; Z85.46 Personal history of malignant neoplasm of prostate
CPT/HCPCS: 36415; 74021; 74176; 80048; 80053; 81001; 82550; 82948; 83036; 83690; 83735; 84145; 84443; 84484; 85025; 85027; 86140; 87086; 87186; 93005; 99285; G0378; J0696; J2543; J1308